=== PATIENT | male | born 1965 | race Caucasian/White ===

== ENCOUNTER 2021-04-06 13:57 | Outpatient (REF) | payer OTHER, SELFPAY ==
[2021-04-06 14:53] LABS: Anion Gap 12 (12-20); Blood Urea Nitrogen 12 mg/dL (9-16); Calcium 9.7 mg/dL (8.4-10.2); Carbon Dioxide 23 mmol/L (22-29); Chloride 109 mmol/L (96-108); Estimated Glomerular Filt Rate 48; Glucose Fasting 101 mg/dL (60-99); Sodium 139 mmol/L (135-145)
== END 2021-04-06 13:58 | disposition home or self-care (01) ==
LOC: HO.LAB 13:57
PROVIDERS: PCP Hospitalist; Visit Provider Internal Medicine Hypertension Specialist
DX: E87.1 Hypo-osmolality and hyponatremia (principal)
CPT/HCPCS: 36415; 80048

== ENCOUNTER 2021-07-03 15:44 | Outpatient (REF) | payer OTHER, SELFPAY ==
[2021-07-03 16:29] LABS: MANUAL DIFF FLAG NO
[2021-07-03 16:37] LABS: Basophils Absolute Auto 0.1 X10*3/uL (0.0-0.2); Basophils Percent Auto 0.7 % (0-2); Eosinophils Absolute Auto 0.2 X10*3/uL (0.0-0.4); Eosinophils Percent Auto 3.3 % (0-4); Hematocrit 36.1 % (42-52); Imm Gran Abs Auto 0.02 X10*3/uL (0.00-0.03); Imm Gran Pct Auto 0.3 % (0.0-0.4); Lymphocytes Absolute Auto 1.9 X10*3/uL (1.2-4.9); Lymphocytes Percent Auto 26.4 % (20-40); Mean Corpuscular HGB Conc 33.2 g/dl (31.0-36.0); Mean Corpuscular Hemoglobin 29.9 pg (27.0-33.0); Mean Corpuscular Volume 89.8 fL (80-98); Mean Platelet Volume 10.5 fL (9.4-12.4); Monocytes Absolute Auto 0.8 X10*3/uL (0.1-1.2); Monocytes Percent Auto 10.7 % (2-11); Neutrophils Absolute Auto 4.2 X10*3/uL (2.0-8.3); Neutrophils Percent Auto 58.6 % (45-73); Platelet Count 234 X10*3/uL (160-400); Red Blood Count 4.02 X10*6/uL (4.60-5.80); Red Cell Distribution Width 13.5 % (11.0-16.0); White Blood Count 7.2 X10*3/uL (4.8-10.8)
[2021-07-03 16:49] LABS: Anion Gap 11 (12-20); Blood Urea Nitrogen 13 mg/dL (9-16); Calcium 9.7 mg/dL (8.4-10.2); Carbon Dioxide 23 mmol/L (22-29); Chloride 110 mmol/L (96-108); Estimated Glomerular Filt Rate 53; Glucose Random 83 mg/dL (60-115); Potassium 4.7 mmol/L (3.3-5.1); Sodium 139 mmol/L (135-145)
== END 2021-07-03 15:45 | disposition home or self-care (01) ==
LOC: HO.LAB 15:44
PROVIDERS: PCP Hospitalist; Visit Provider Internal Medicine Hypertension Specialist
DX: N18.31 Chronic kidney disease, stage 3a (principal)
CPT/HCPCS: 36415; 80048; 85025

== ENCOUNTER 2022-10-22 09:29 | Outpatient (REF) | payer OTHER, SELFPAY ==
[2022-10-22 10:33] LABS: Anion Gap 13 (12-20); Blood Urea Nitrogen 18 mg/dL (9-16); Carbon Dioxide 28 mmol/L (22-29); Chloride 103 mmol/L (96-108); Estimated Glomerular Filt Rate 54; Glucose Random 128 mg/dL (60-115); Potassium 5.2 mmol/L (3.3-5.1); Sodium 139 mmol/L (135-145)
== END 2022-10-22 09:30 | disposition home or self-care (01) ==
LOC: HO.LAB 09:29
PROVIDERS: PCP Hospitalist; Referring Provider Hospitalist; Visit Provider Internal Medicine Hypertension Specialist
DX: N18.31 Chronic kidney disease, stage 3a (principal)
CPT/HCPCS: 36415; 80048

== ENCOUNTER → 2024-02-12 14:00 | Outpatient (BNVA) | payer OTHER, SELFPAY | PROVIDERS: PCP Hospitalist; Visit Provider Internal Medicine Hypertension Specialist | DX: N18.9 Chronic kidney disease, unspecified (principal) | CPT/HCPCS: 99212 ==

== ENCOUNTER 2024-02-12 14:02 | Outpatient (AMB) | payer OTHER, SELFPAY ==
[2024-02-12 14:01] VITALS: BP 112/70; PULSE 110; O2SAT 97; BMI 28.1
--- NOTE | 2024-02-12 14:01 | HO.NEPHOV ---
HPI HPI Comments History of Present Illness Details Middle aged man with CKD is here for follow up Recently finished rehab program Still smoked pot. Denies alcohol intake c/o Cramps - Takes Magnesium and Iron supplements PFSH Surgical History History of back surgery Social History Patient Tobacco Use Status: Never used Tobacco Vital Signs 02/12/24 14:01 Height 6 ft Weight 207 lb BMI 28.1 BP 112/70 Blood Pressure Location Lt brachial Position Sitting Pulse 110 H Pulse Source Pulse Oximeter Pulse Oximetry (%) 97 Oxygen Delivery Method Room Air Physical Exam Vital Signs: Last Vital Signs Pulse 110 H 02/12/24 14:01 BP 112/70 02/12/24 14:01 Pulse Ox 97 02/12/24 14:01 Oxygen Delivery Method Room Air 02/12/24 14:01 BMI result Body Mass Index 28.1 Const General: comfortable Nutritional Appearance: well nourished Orientation/consciousness: patient oriented x3 HEENT Head: No normal to inspection Mouth: moist mucous membranes Neck Neck: Yes supple and Yes no JVD Resp Auscultation: clear to auscultation bilaterally, no rales and rub present Cardio Jugular venous distension: no JVD Palpation: no palpable S3 and no palpable S4 Heart sounds: no rubs GI Palpation (GI): Soft to palpation and nontender Percussion: No Fluid wave present General: Yes no CVA tenderness Back/Spine/Pelvis Back: no CVA tenderness Skin General skin exam: no rashes or lesions noted Neuro General: patient oriented x3 Extrem General: Yes no pedal edema and No clubbing Assessment & Plan Assessment & Plan (1) CKD (chronic kidney disease): Code(s): N18.9 - Chronic kidney disease, unspecified Plan Middle aged man with CKD Renal function is close to baseline Continue to avoid nephrotoxins including NSAIDS and illicit drugs Keep I > O Can try tonic water to alleviate cramps BP acceptale NO changes were made Orders: Orders Basic Metabolic Panel 6 Months N18.9 - Chronic kidney disease, unspecified Coding Level of Care Code Est Pt Level 3 (37528) Diagnoses CKD (chronic kidney disease) N18.9 Results Reviewed Results Reviewed: Jan 25: cr 1.3 Nephrology Results: Hgb 12.0 g/dl (14.0-18.0) L 07/03/21 WBC 7.2 X10*3/uL (4.8-10.8) 07/03/21 Plt Count 234 X10*3/uL (160-400) 07/03/21 Sodium 139 mmol/L (135-145) 10/22/22 Potassium 5.2 mmol/L (3.3-5.1) H 10/22/22 Chloride 103 mmol/L (96-108) 10/22/22 Carbon Dioxide 28 mmol/L (22-29) 10/22/22 BUN 18 mg/dL (9-16) H 10/22/22 Creatinine 1.36 mg/dL (0.5-1.4) 10/22/22 Calcium 10.0 mg/dL (8.4-10.2) 10/22/22
== END 2024-02-12 14:18 | disposition home or self-care (01) ==
PROVIDERS: PCP Hospitalist; Visit Provider Internal Medicine Hypertension Specialist
DX: N18.9 Chronic kidney disease, unspecified (principal)
CPT/HCPCS: 99213

== ENCOUNTER 2024-08-12 10:23 | Outpatient (AMB) | payer OTHER, SELFPAY ==
[2024-08-12 10:31] VITALS: BP 122/60; PULSE 70; O2SAT 98; BMI 25.9
--- NOTE | 2024-08-12 10:31 | HO.NEPHOV_ITS ---
Vital Signs 08/12/24 10:31 Height 6 ft Weight 191 lb BMI 25.9 BP 122/60 Blood Pressure Location Lt brachial Position Sitting Pulse 70 Pulse Source Pulse Oximeter Pulse Oximetry (%) 98 Oxygen Delivery Method Room Air Intake Visit Reasons: 6 mon follow up/ Conf Atomic Fuel Assembler Required: No Accompanied by: Self / Same As Patient Allergies adhesive tape Allergy (Verified 08/12/24 10:32) Unknown bees Allergy (Unknown, Uncoded 01/01/24 16:32) Unknown MRI contrast Allergy (Unknown, Uncoded 01/01/24 16:32) Unknown poisin yanci Allergy (Unknown, Uncoded 01/01/24 16:32) Unknown Medication List - Last Reconciled 08/12/24 by Stanislav Miller MD amlodipine 2.5 mg PO DAILY clonidine HCl 0.1 mg PO BEDTIME cyanocobalamin (vitamin B-12) 100 mcg PO DAILY epinephrine (EpiPen) 0.3 mg IM Q4H PRN folic acid 1 mg PO DAILY gabapentin 300 mg PO QDAY hydroxyzine HCl 25 mg PO BEDTIME PRN rosuvastatin 5 mg PO DAILY sertraline 100 mg PO DAILY thiamine HCl (vitamin B1) 100 mg PO QDAY HPI Comments Details: Middle aged man with CKD is here for follow up Still smokes pot. Denies alcohol intake Still has Cramps but improved- Takes Magnesium and Iron supplements PFSH Surgical History History of back surgery Social History Patient Tobacco Use Status: Never used Tobacco Physical Exam Vital Signs: Last Vital Signs Pulse 70 08/12/24 10:31 BP 122/60 08/12/24 10:31 Pulse Ox 98 08/12/24 10:31 Oxygen Delivery Method Room Air 08/12/24 10:31 BMI result Body Mass Index 25.9 Const General: comfortable Nutritional Appearance: well nourished Orientation/consciousness: patient oriented x3 HEENT Head: No normal to inspection Mouth: moist mucous membranes Neck Neck: Yes supple and Yes no JVD Resp Auscultation: clear to auscultation bilaterally, no rales and rub present Cardio Jugular venous distension: no JVD Palpation: no palpable S3 and no palpable S4 Heart sounds: no rubs GI Palpation (GI): Soft to palpation and nontender Percussion: No Fluid wave present General: Yes no CVA tenderness Back/Spine/Pelvis Back: no CVA tenderness Skin General skin exam: no rashes or lesions noted Neuro General: patient oriented x3 Extrem General: Yes no pedal edema and No clubbing Results Reviewed Results Reviewed: Labs pending- Done today Nephrology Results: Hgb 12.0 g/dl (14.0-18.0) L 07/03/21 WBC 7.2 X10*3/uL (4.8-10.8) 07/03/21 Plt Count 234 X10*3/uL (160-400) 07/03/21 Sodium 139 mmol/L (135-145) 10/22/22 Potassium 5.2 mmol/L (3.3-5.1) H 10/22/22 Chloride 103 mmol/L (96-108) 10/22/22 Carbon Dioxide 28 mmol/L (22-29) 10/22/22 BUN 18 mg/dL (9-16) H 10/22/22 Creatinine 1.36 mg/dL (0.5-1.4) 10/22/22 Calcium 10.0 mg/dL (8.4-10.2) 10/22/22 Assessment & Plan Assessment & Plan (1) CKD (chronic kidney disease): Code(s): N18.9 - Chronic kidney disease, unspecified Category: Medical Plan Middle aged man with CKD Renal function is close to baseline- shall follow labs Continue to avoid nephrotoxins including NSAIDS and illicit drugs Keep I > O Use tonic water to alleviate cramps BP acceptale Encouraged to stay on low salt diet No changes were made Coding Level of Care Code Est Pt Level 4 (08252) Diagnoses CKD (chronic kidney disease) N18.9
== END 2024-08-12 10:44 | disposition home or self-care (01) ==
PROVIDERS: PCP Hospitalist; Visit Provider Internal Medicine Hypertension Specialist
DX: N18.9 Chronic kidney disease, unspecified (principal)
CPT/HCPCS: 99214

== ENCOUNTER 2024-08-12 10:23 | Outpatient (REF) | payer OTHER, SELFPAY ==
[2024-08-12 17:58] LABS: Anion Gap 11 (12-20); Blood Urea Nitrogen 22 mg/dL (9-16); Calcium 9.6 mg/dL (8.4-10.2); Carbon Dioxide 30 mmol/L (22-29); Chloride 101 mmol/L (96-108); Estimated Glomerular Filt Rate 36; Glucose Random 131 mg/dL (60-115); Potassium 5.5 mmol/L (3.3-5.1); Sodium 136 mmol/L (135-145)
== END 2024-08-12 10:24 | disposition home or self-care (01) ==
LOC: HO.HKASLDS 10:23
PROVIDERS: Visit Provider Internal Medicine Hypertension Specialist
DX: N18.9 Chronic kidney disease, unspecified (principal)
CPT/HCPCS: 36415; 80048; 99212

== ENCOUNTER → 2024-08-12 10:23 | Outpatient (BNVA) | payer OTHER, SELFPAY | PROVIDERS: PCP Hospitalist; Visit Provider Internal Medicine Hypertension Specialist ==

== ENCOUNTER 2025-02-17 10:45 | Outpatient (AMB) | payer OTHER, SELFPAY ==
--- NOTE | 2025-02-17 10:48 | HO.NEPHOV ---
Vital Signs 02/17/25 10:49 Height 6 ft Weight 198 lb BMI 26.9 BP 106/64 Blood Pressure Location Lt brachial Position Sitting Pulse 80 Pulse Source Pulse Oximeter Pulse Oximetry (%) 99 Oxygen Delivery Method Room Air Intake Visit Reasons: 6 mon follow up/ LVM Surgical Services Manager Required: No Accompanied by: Self / Same As Patient Allergies adhesive tape Allergy (Verified 02/17/25 10:56) Unknown bees Allergy (Unknown, Uncoded 01/01/24 16:32) Unknown MRI contrast Allergy (Unknown, Uncoded 01/01/24 16:32) Unknown poisin yanci Allergy (Unknown, Uncoded 01/01/24 16:32) Unknown Medication List - Last Reconciled 02/17/25 by Stanislav Miller MD amlodipine 2.5 mg PO DAILY clonidine HCl 0.1 mg PO BEDTIME cyanocobalamin (vitamin B-12) 100 mcg PO DAILY epinephrine (EpiPen) 0.3 mg IM Q4H PRN ferrous sulfate 325 mg PO DAILY folic acid 1 mg PO DAILY gabapentin 300 mg PO QDAY hydroxyzine HCl 25 mg PO BEDTIME PRN magnesium oxide 400 mg PO DAILY pramipexole 0.5 mg PO DAILY pyridoxine (vitamin B6) 50 mg PO DAILY rosuvastatin 5 mg PO DAILY sertraline 200 mg PO DAILY thiamine HCl (vitamin B1) 100 mg PO QDAY HPI Comments Details: Middle aged man with CKD is here for follow up Still smokes pot. Denies alcohol intake Still has Cramps but improved- Takes Magnesium and Iron supplements 02/17/25- Cramps are better PFSH Surgical History History of back surgery Social History Patient Tobacco Use Status: Never used Tobacco Physical Exam Vital Signs: Last Vital Signs Pulse 80 02/17/25 10:49 BP 106/64 02/17/25 10:49 Pulse Ox 99 02/17/25 10:49 Oxygen Delivery Method Room Air 02/17/25 10:49 BMI result Body Mass Index 26.9 Const General: comfortable Nutritional Appearance: well nourished Orientation/consciousness: patient oriented x3 HEENT Head: No normal to inspection Mouth: moist mucous membranes Neck Neck: Yes supple and Yes no JVD Resp Auscultation: clear to auscultation bilaterally and no rales Cardio Jugular venous distension: no JVD Palpation: no palpable S3 and no palpable S4 Heart sounds: Murmur heart sound present and no rubs GI Palpation (GI): Soft to palpation and nontender Percussion: No Fluid wave present General: Yes no CVA tenderness Back/Spine/Pelvis Back: no CVA tenderness Skin General skin exam: no rashes or lesions noted Neuro General: patient oriented x3 Extrem General: Yes no pedal edema and No clubbing Results Reviewed Results Reviewed: 01/19/25 Cr 1.19 K 5.2 Nephrology Results: Hgb 12.0 g/dl (14.0-18.0) L 07/03/21 WBC 7.2 X10*3/uL (4.8-10.8) 07/03/21 Plt Count 234 X10*3/uL (160-400) 07/03/21 Sodium 136 mmol/L (135-145) 08/12/24 Potassium 5.5 mmol/L (3.3-5.1) H 08/12/24 Chloride 101 mmol/L (96-108) 08/12/24 Carbon Dioxide 30 mmol/L (22-29) H 08/12/24 BUN 22 mg/dL (9-16) H 08/12/24 Creatinine 1.91 mg/dL (0.5-1.4) H 08/12/24 Calcium 9.6 mg/dL (8.4-10.2) 08/12/24 Assessment & Plan Assessment & Plan (1) CKD (chronic kidney disease): Code(s): N18.9 - Chronic kidney disease, unspecified Category: Medical Plan Middle aged man with CKD Renal function is close to baseline- shall follow labs Continue to avoid nephrotoxins including NSAIDS and illicit drugs Keep I > O Use tonic water to alleviate cramps BP acceptale Encouraged to stay on low salt diet No changes were made Orders: Orders Basic Metabolic Panel 6 Months N18.9 - Chronic kidney disease, unspecified Phosphorus 6 Months N18.9 - Chronic kidney disease, unspecified Magnesium 6 Months N18.9 - Chronic kidney disease, unspecified Parathyroid Hormone Intact 6 Months N18.9 - Chronic kidney disease, unspecified Coding Level of Care Code Est Pt Level 4 (90175) Diagnoses CKD (chronic kidney disease) N18.9
[2025-02-17 10:49] VITALS: BP 106/64; PULSE 80; O2SAT 99; BMI 26.9
--- OUTSIDE RECORDS SUMMARY | 2025-02-17 12:48 | XMS_ITS ---
Author Organization [facility] Address [address] [place] [address] Care Team Providers Care Lecturer In Marketing Name Role Phone LLOYD MOHR Primary Care Provider [phone] REASON FOR VISIT Handicap Placard Form Encounters Encounter Location Date Provider Diagnosis [address] [address] 01/27/2025 LLOYD MOHR Plan Of Treatment Next Appt Details Provider Name:Marlon Palafoxneo rush, 07/30/2025 11:00:00 AM, [address] [place] [address], [place], [address], Progress Notes * TITI HYATT PDOB:1964 (59 yo M)Acc No.[id number]:01/27/2025 Patient:?TITI HYATT :1965???Age:59 Y???Sex:Male Address:[address] [place] [phone] * true * Date:? Generated for Nicolette mix/Miracle/eTransmitting on:?02/17/2025 12:47 PM EDT
--- OUTSIDE RECORDS SUMMARY | 2025-02-17 12:48 | XMS_ITS | Clinical Summary ---
Author Organization [facility] Address [address] [place] [address] Phone Care Team Providers Care Security Systems Sales Representative Name Role Phone Sheba Ayala MD Primary Care Provider [phone] Allergies Active Allergy Reactions Criticality Noted Date Comments Adhesive Tape Other (see comments) 02/26/2018 Gadopentetate Other (see comments) 12/28/2010 Iodinated Contrast Media Other (see comments) 0 02/18/2017 Other Other (see comments) 05/22/2010 Contrast Dye. Medications EPINEPHrine (EPIPEN) 0.3 MG/0.3ML injection syringe Inject 0.3 mg into the shoulder, thigh, or buttocks 03/11/2019 Active folic acid (FOLVITE) 1 MG tablet Take 1 tablet by mouth 1 (one) time each day 02/29/2020 Active thiamine (VITAMIN B-1) 100 MG tablet TAKE 1 TABLET BY MOUTH TWO TIMES A DAY FOR 14 DAYS 03/19/2021 Active hydrOXYzine (ATARAX) 25 MG tablet TAKE ONE TABLET BY MOUTH EVERY 8 HOURS NEEDED 03/21/2021 Active cloNIDine (CATAPRES) 0.1 MG tablet Take 0.1 mg by mouth 1 (one) time each day For 30 days 10/18/2022 Active escitalopram (LEXAPRO) 20 MG tablet Take 20 mg by mouth 1 (one) time each day 03/05/2022 Active rosuvastatin (CRESTOR) 5 MG tablet Take 5 mg by mouth 1 (one) time each day For 30 days 09/05/2022 Active lisinopril 10 MG tablet Take 10 mg by mouth 1 (one) time each day 03/05/2022 Active gabapentin (NEURONTIN) 300 MG capsule Take 300 mg by mouth 1 (one) time each day Every day for 30 days 10/23/2022 Active celecoxib (CeleBREX) 100 MG capsule Take 100 mg by mouth in the morning and 100 mg in the evening. 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 Gouty arthritis of the ankle and/or foot 017 Basal cell carcinoma of skin 09/09/2017 Overview (04/03/2021): Left upper back. 08/09/2017 Overview: Left upper back. 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 Janelle Ware @ [facility] [place] Hyperlipidemia 03/09/2017 Overview (04/03/2021): 10 year ASCVD risk = 14.5% Alcohol dependence 02/18/2017 Alcoholic fatty liver 02/18/2017 Essential hypertension 02/18/2017 Osteoarthrosis of the carpometacarpal joint of t he thumb 02/18/2017 Tobacco user 02/18/2017 Spondylolisthesis 06/21/2011 Overview (04/03/2021): Spondylolisthesis Overview: Spondylolisthesis Immunizations Name Administration Dates Next Due Hepatitis B 11/08/2017,03/14/2017 Tdap 12/16/2019 Family History Medical History Relation Comments Diabetes Father Relation Status Comments Father Mother Social History Tobacco Use Types Packs/Day Years Used Date Smoking Tobacco: Former Smokeless Tobacco: Never Tobacco Cessation:Counseling Given: Not Answered Alcohol Use Standard Drinks/Week Comments Not Currently 0 (1 standard drink = 0.6 oz pur e alcohol) Sex and Gender Information Value Date Recorded Sex Assigned at Not on file Legal Sex Male 10:31 AM EDT Gender Identity Not on file Sexual Orientation Not on file Last Filed Vital Signs Vital Sign Reading Time Taken Comments Blood Pressure 150/82 03/20/2023 3:53 PM EDT Pulse 111 03/20/2023 3:53 PM EDT Temperature - - Respiratory Rate - - Oxygen Saturation 98% 03/20/2023 3:53 PM EDT Inhaled Oxygen Concentration - - Weight 90.7 kg (200 lb) 03/20/2023 3:53 PM EDT Height - - Body Mass Index - - Plan of Treatment Health Maintenance Due Date Last Done Comments Pneumococcal Vaccine: Pediatrics (0 to 5 Years) and At-Risk Patients (6 to 64 Years) (1 of 2 - PCV) 1970 Colorectal Cancer Screening: Annual FOBT 2013 Colorectal Cancer Screening: Colonoscopy 2013 Colorectal Cancer Screening: Sigmoidoscopy 2013 Influenza Vaccine (#1) 2024 Hepatitis B Vaccine Aged Out 11/08/2017, 03/14/2017 No longer eligible based on patient's age to complete this topic Care Teams Security Systems Sales Representative Relationship Specialty Start Date End Date Sheba Ayala MD [address] [place] [address] PCP - General Internal Medicine 12/02/20
--- OUTSIDE RECORDS SUMMARY | 2025-02-17 12:48 | XMS_ITS | Clinical Summary ---
Author Organization [facility] Address [address] [place] [address] Care Team Providers Care Religion Teacher Name Role Phone DaimarcyRafael Primary Care Provider [phone] Source Comments PLEASE NOTE, if this patient is a minor, it may be UNLAWFUL to discuss sensitive information that is contained in these records (such as FAMILY PLANNING, MENTAL HEALTH or SUBSTANCE ABUSE) with the minor patient's parent or other person without the patient's specific authorization.[facility] Allergies Active Allergy Reactions Criticality Noted Date Comments Iodinated Contrast Media Cough 02/18/2017 Medications nicotine (NICODERM CQ) 21 mg/[address] 1 Patch onto the skin Active diclofenac sodium (VOLTAREN) 1 % gelIndications:N onspecific pain in the lumbar region Apply topically 2 (two) times daily 100 g 1 9 Active naproxen (NAPROSYN) 500 mg tabletIndication s:Nonspecific pain in the lumbar region Take 1 Tab by mouth 2 (two) times daily 60 Tab 1 9 Active methylPREDNISolo ne (MEDROL DOSPACK) 4 mg tablet packIndications: Contusion of lower back, initial encounter Use as directed 1 Packet 9 Active baclofen 20 mg tabletIndication s:Muscle spasm Take 1 Tab by mouth nightly at bedtime 30 Tab 3 9 Active EPINEPHrine (EPIPEN) 0.3 mg/0.3 mL pen injectorIndicati ons:H/O bee sting allergy Inject 0.3 mL into the muscle as needed for anaphylaxis 1 Each 3 9 Active pyridoxine, vitamin B6, 100 mg tabletIndication s:Alcohol use Take 1 Tab by mouth once daily 30 Tab 5 9 Active pantoprazole (PROTONIX) 20 mg EC tabletIndication s:Gastroesophage al reflux disease without esophagitis,Bila teral leg edema Take 1 Tab by mouth once daily 60 Tab 0 Active folic acid (FOLVITE) 1 mg tabletIndication s:Alcohol use TAKE 1 TABLET BY MOUTH ONCE DAILY 30 Tab 5 0 Active losartan (COZAAR) 100 mg tabletIndication s:Essential hypertension Take 1 Tab by mouth once daily 90 Tab 2 0 Active nadoloL (CORGARD) 40 mg tabletIndication s:Essential hypertension TAKE 1 TABLET BY MOUTH ONCE DAILY 30 Tab 3 0 Active Active Problems Problem Noted Date Diagnosed Date Neuropathy 01/04/2020 Overview (01/04/2020): BLE- EMG 04/14/19 showed mild to moderate axonal sensory and motor chronic peripheral neuropathy . Gout of right foot 11/08/2017 Basal cell carcinoma of skin 09/09/2017 Overview (02/26/2019): Overview: Left upper back. 08/09/2017 Hypomagnesemia 05/25/2017 Primary osteoarthritis of both knees 05/04/2017 Overview (05/04/2017): Rheum f/u Dr. Janelle Ware @ [facility] [place] Bilateral carpal tunnel syndrome 05/04/2017 Hyperlipidemia LDL goal <100 03/09/2017 Overview (03/09/2017): 10 year ASCVD risk = 14.5% Essential hypertension 02/18/2017 Tobacco abuse disorder 02/18/2017 Uncomplicated alcohol dependence (HCC-CMS) 02/18 Alcoholic fatty liver 02/18/2017 Osteoarthritis of carpometacarpal joints of both thumbs 02/18/2017 Spondylolisthesis 06/21/2011 Overview (02/26/2019): Overview: Spondylolisthesis Resolved Problems Problem Noted Date Diagnosed Date Resolved Date Chronic right-sided low back pain with bilateral sciatica 02/18/2017 11/08/2017 Immunizations Name Administration Dates Next Due Hep B, Adult/Adol (ENERGIX/RECOMBIVAX) 7,03/14/2017 TDAP 12/16/2019 Family History Medical History Relation Name Comments Hypertension Father Diabetes Sister Relation Name Status Comments Father (Age 87) Mother Alive Sister Alive Social History Tobacco Use Types Packs/Day Years Used Date Smoking Tobacco: Every Day Cigarettes Smokeless Tobacco: Never Alcohol Use Standard Drinks/Week Comments Yes 0 (1 standard drink = 0.6 oz pur e alcohol) everyday ~6 mixed drinks Social Connections Answer Date Recorded Connectedness 0 08/21/2024 Financial Resource Strain Answer Date R ecorded Financial Resource Strain 0 2018 Stress Answer Date Recorded Stress 0 07/26/2019 Physical Activity Answer Date Recorded Physical Activity 0 07/26/2019 Food Insecurity Answer Date Recorded Food 0 08/27/2024 Transportation Needs Answer Date Record ed Transportation 0 07/26/2019 Housing Stability Answer Date Recorded Housing 0 07/26/2019 Safety and Environment Answer Date Norman rded Safety 0 07/26/2019 Utilities Answer Date Recorded Utilities 0 07/26/2019 Employment Answer Date Recorded Stress 0 08/21/2024 Sex and Gender Information Value Date Recorded Sex Assigned at Male 11/08/2017 1:17 PM PST Legal Sex Male 12:58 PM PST Gender Identity Male 11/08/2017 1:17 PM PST Sexual Orientation Straight 11/08/2017 1: 17 PM PST 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 Author Blood Pressure < 140/90 Blood Pressure Essential hypertension 146/95(2019 3:36 PM EST) No Arcadio Pa, PharmD Insurance [employer] MEDICAID DENTAL [facility] D[facility]AL [id number] [place] [address] Care Teams Religion Teacher Relationship Specialty Start Date End Date Rafael Millard FNP [address] [place] [address] PCP - General Family Medicine, MAINTENANCE MECHANIC SUPERVISOR 12/23/17
--- OUTSIDE RECORDS SUMMARY | 2025-02-17 12:48 | XMS_ITS ---
Author Organization [facility] Address [address] [place] [phone] Care Team Providers Care Sharepoint Analyst Name Role Phone LLOYD MOHR Primary Care Provider REASON FOR VISIT Morphine rx Medications Medication SIG (Take, Route, Frequency, Duration) Notes Start Date End Date Status Morphine Sulfate ER 10 MG 1 capsule Orally Once a day for 10 days Partial Fill upon Patient Request 01/04/2025 Active Encounters Encounter Location Date Provider Diagnosis [address] [address] 01/04/2025 LLOYD MOHR Polyneuropathy, unspecified G62.9 Assessments Encounter Date Diagnosis (ICD Code) Assessment Notes Treatment Notes Treatment Clinical Notes Section Notes 01/04/2025 Polyneuropathy, unspecified (ICD-10 - G62.9) Plan Of Treatment Medication Medication Name Sig Start Date Stop Date Notes Morphine Sulfate ER 10 MG 1 capsule Orally Once a day for 10 days 01/04/2025 Partial Fill upon Patient Request Next Appt Details Provider Name:Darrellhaydee Margot rush, 07/30/2025 11:00:00 AM, [address] [place] [address], [phone], Progress Notes * TITI HYATT PDOB:1964 (59 yo M)Acc No.[id number]:01/04/2025 Patient:?TITI HYATT :1965???Age:59 Y???Sex:Male Address:[address] [place] [phone] * Refills? Refill Morphine Sulfate ER Capsule Extended Release 24 Hour, 10 MG, Orally, 10 Capsule, 1 capsule, Once a day, 10 days, Refills=0 * true * Date:? Generated for Nicolette mix/Miracle/Carlaitting on:?02/17/2025 12:48 PM EDT
--- OUTSIDE RECORDS SUMMARY | 2025-02-17 12:48 | XMS_ITS | Clinical Summary ---
Author Organization [facility] Address [address] [place] [address] Care Team Providers Care Director [facility] Name Role Phone Sheba Ayala MD Primary Care Provider [phone] Medical History Medical History Date Comments Basal cell carcinoma 09/09/2017 DX:Basal ce ll carcinoma; COMMENT: Left upper back. 08/09/2017 Social History Tobacco Use Types Packs/Day Years Used Date Smoking Tobacco: Never Smokeless Tobacco: Never Sex and Gender Information Value Date Recorded Sex Assigned at Not on file Legal Sex Male 2:43 PM EST Gender Identity Not on file Sexual Orientation Not on file Obstetrics History Last Filed Vital Signs Vital Sign Reading Time Taken Comments Blood Pressure 148/86 10/05/2022 3:21 PM EDT R A rm Pulse - - Temperature - - Respiratory Rate - - Oxygen Saturation - - Inhaled Oxygen Concentration - - Weight 91.6 kg (202 lb) 10/05/2022 3:21 PM EDT Height 182.9 cm (6') 10/05/2022 3:21 PM EDT Body Mass Index 27.4 10/05/2022 3:21 PM EDT Plan of Treatment Health Maintenance Due Date Last Done Comments COVID-19 Vaccine (#1) 1969 DTaP,Tdap,and Td Vaccines (1 - Tdap) 1983 Pneumococcal Vaccine: 50+ Ye ars (1 of 2 - PCV) 1983 Pneumococcal Vaccine: Pediat rics (0 to 5 Years) and At-Risk Patients (6 to 64 Years) (1 of 2 - PCV) 1983 Zoster Vaccines (1 of 2) 1983 Cholesterol Screening (Lipid Panel) 11/10/2022 Colorectal Cancer Screening: Colonoscopy 11/10/2022 Depression Screening 11/10/2022 HIV Screening 11/10/2022 Hepatitis C Screening 11/10/2022 Social Influencers of Health Screening 11/10/2022 Influenza Vaccine (#1) 2024 RSV Immunization Patients 60 + Years Old (1 - 1-dose 75+ series) 2039 HIB Vaccines Aged Out No longer eligi ble based on patient's age to complete this topic HPV Vaccines Aged Out No longer eligi ble based on patient's age to complete this topic Hepatitis A Vaccines Aged Out No long er eligible based on patient's age to complete this topic Hepatitis B Vaccines Aged Out No long er eligible based on patient's age to complete this topic IPV Vaccines Aged Out No longer eligi ble based on patient's age to complete this topic MMR Vaccines Aged Out No longer eligi ble based on patient's age to complete this topic Meningococcal ACWY Vaccine Aged Out N o longer eligible based on patient's age to complete this topic Meningococcal B Vacine Aged Out No lo nger eligible based on patient's age to complete this topic RSV Immunization Patients Un elissa 20 months Aged Out No longer eligible b ased on patient's age to complete this topic Varicella Vaccines Aged Out No longer eligible based on patient's age to complete this topic Advance Directives Documents on File Type Date Recorded Patient Digital Advisor Expl anation Health Care Decision (hx) 10/06/2018 AD [place] DIRECTIVE Health Care Decision (hx) 10/06/2018 AD [place] DIRECTIVE Health Care Decision (hx) 10/06/2018 AD [place] DIRECTIVE Health Care Decision (hx) 10/06/2018 AD [place] DIRECTIVE Health Care Decision (hx) 10/06/2018 AD [place] DIRECTIVE Health Care Decision (hx) 10/03/2018 AD [place] DIRECTIVE Health Care Decision (hx) 10/03/2018 AD [place] DIRECTIVE Health Care Decision (hx) 10/03/2018 AD [place] DIRECTIVE Health Care Decision (hx) 10/03/2018 AD [place] DIRECTIVE Health Care Decision (hx) 10/03/2018 AD [place] DIRECTIVE Care Teams Director [facility] Relationship Specialty Start Date End Date Sheba Ayala MD [address] [place] [id number] (work) PCP - General Internal Medicine 01/04/21
--- OUTSIDE RECORDS SUMMARY | 2025-02-17 12:48 | XMS_ITS ---
Author Organization [facility] Address [address] [place] [address] Care Team Providers Care Pipe Setter Name Role Phone LLOYD MOHR Primary Care Provider Marlon Gutierrez Unavailable [phone] Allergies Allergen (clinical drug ingredient) Drug/Non Drug Allergy documented on EMR Reaction Allergy Type Onset Date Status MRI Contrast (uncoded) Unknown Allergy Active lisinopril Lisinopril swelling of face Drug Allergy Active Results Component Value Reference Range Notes Hemoglobin [id number] Reviewed date:02/04/2025 08:56:54 AM Interpretation: Performing Lab:[facility], [address], [place], Phone - [phone], Director - Amada Notes/Report: Hemoglobin A1c 6.2 4.8-5.6 % . Prediabetes: 5.7 - 6.4 Diabetes: >6.4 Glycemic control for adults with diabetes: <7.0 Reason For Referral Reason Please evaluate and treat, refer to [place] Diagnosis 1 Arthritis of knee, l eft (M17.12) Referral Organization [facility] Referring Provider First Name Marlon Referring Provider Last Name Brenda Referred Provider Specialty Orthopedic S urgery Referral Priority Routine REASON FOR VISIT 1 month f/u MARISELA Medications Medication SIG (Take, Route, Frequency, Duration) Notes Start Date End Date Status Dicyclomine HCl 20 MG TAKE 1 TABLET BY MOUTH THREE TIMES A DAY FOR 30 DAYS for 90 Active Morphine Sulfate ER 10 MG 1 capsule Orally Once a day for 10 days Partial Fill upon Patient Request 01/04/2025 Active [facility] Iron 325 (65 Fe) MG TAKE 1 TABLET BY MOUTH EVERY DAY FOR 30 DAYS for 90 Active Sertraline HCl 200 MG 1 capsule Orally Once a day for 30 days Active Sertraline HCl 150 MG 1 capsule Orally Once a day for 30 days Not-Taking amLODIPine Besylate 2.5 MG TAKE 1 TABLET BY MOUTH EVERY DAY FOR 30 DAYS for 90 Active tiZANidine HCl 4 MG TAKE 1 TABLET BY MOUTH EVERY DAY AT BEDTIME NEEDED FOR 30 DAYS for 30 Active hydrOXYzine HCl 25 MG TAKE 1 TABLET BY MOUTH EVERY 8 HOURS for 90 Active cloNIDine HCl 0.2 MG 1 tablet in the morning and two at night Orally twice a day for 90 days Active Gabapentin 300 MG 1 capsule Orally four times a day for 90 days Active Thiamine HCl 100 MG 1 tablet Orally Once a day for 90 days Active Folic Acid 1 MG 1 tablet Orally Once a day for 90 days Active Vitamin B12 100 MCG 100 mg Orally daily for 90 days 2 gummies daily Active CoQ-10 200 MG as directed Orally Active traZODone HCl 50 MG 1 tablet at bedtime as needed Orally Once a day Active Vitamin B6 50 MG 1 tablet Orally Active Diclofenac Sodium 1 % DIRECTED EXTERNALLY 2 TIMES A DAY FOR 30 DAYS for 30 Not-Taking Celecoxib 100 MG TAKE 1 CAPSULE BY MOUTH EVERY DAY WITH FOOD FOR 30 DAYS for 30 Not-Taking Naltrexone HCl 50 MG 1 tablet Orally Once a day for 30 day(s) 10/18/2022 Not-Taking Cialis 10 MG 1 tablet as needed Orally Once a day for 2 days 01/26/2025 Active Furosemide 40 MG TAKE 1 TABLET BY MOUTH EVERY DAY FOR 90 DAYS for 90 GI doctor recommended to stop the medication Not-Taking Spironolactone 25 MG TAKE 1 TABLET BY MOUTH EVERY DAY for 90 GI doctor recommended to stop the medication Not-Taking Calcium Not-Taking Magnesium Not-Taking Pantoprazole Sodium 20 MG 1 tablet Orally Once a day for 30 days 03/10/2024 Not-Taking tiZANidine HCl 2 MG 1 tablet at bedtime as needed Orally Once a day for 30 days 05/07/2024 Not-Taking Furosemide 40 MG 1 tablet Orally Once a day for 90 days 05/07/2024 Not-Taking Rosuvastatin Calcium 5 MG TAKE 1 TABLET BY MOUTH EVERY DAY FOR 30 DAYS for 90 Active Ondansetron 4 MG 1 tablet on the tongue and allow to dissolve Orally 2 times a day for 14 days 03/10/2024 Not-Taking Pramipexole Dihydrochloride 0.5 MG TAKE 1 TABLET BY MOUTH EVERY DAY FOR 30 DAYS for 90 Active Social History Tobacco Use: Social History Observation Description Date Details (start date - stop date) Former Smoker NA - NA Tobacco Use/Smoking Question Answer Notes Are you a former smoker How long has it been since y ou last smoked? 1-5 years Additional Findings: Tobacco User Heavy cigarett e smoker (20-39 cigs/day) Alcohol Screen (Audit-C) Question Answer Notes Did you have a drink contain ing alcohol in the past year? Yes How often did you have a dri nk containing alcohol in the past year? 4 or more times a week (4 points) How many drinks did you have on a typical day when you were drinking in the past year? 1 or 2 drinks (0 point) Points 4 Interpretation Positive Problems Problem Type SNOMED Code ICD Code Onset Dates Problem Status W/U Status Risk Notes Problem Arthritis of left knee ([id number]) Arthritis of knee, left (M17.12) Active confirmed Vital Signs Temperature 97.6 degrees Fahrenheit 01/26/20 Oximetry 93 % 01/26/2025 Heart Rate 89 /min 01/26/2025 Blood pressure systolic 130 mm Hg 01/26/20 Blood pressure diastolic 82 mm Hg 025 Weight 202.0 lbs 01/26/2025 BMI 28.17 kg/m2 01/26/2025 Height 71 in 01/26/2025 Encounters Encounter Location Date Provider Diagnosis [facility] [address] [address] 01/26/2025 Marlon Gutierrez Essential (primary) hypertension I10 ; Generalized anxiety disorder F41.1 ; Impaired fasting blood sugar R73.01 ; Male erectile dysfunction, unspecified N52.9 ; Alcoholic cirrhosis of liver without ascites K70.30 ; Alcohol dependence, uncomplicated F10.20 and Arthritis of knee, left M17.12 Assessments Encounter Date Diagnosis (ICD Code) Assessment Notes Treatment Notes Treatment Clinical Notes Section Notes 01/26/2025 Essential (primary) hypertension (ICD-10 - I10) Mr. Hyatt is a 59-year-old gentleman with erectile dysfunction, CPS/lumbar radiculopathy, hypertension, acid reflux, generalized anxiety disorder, plantar fasciitis of the left foot, cirrhosis follows up with GI in [place] with Dr. Harden is here for follow-up. Plan as follows: HTN: - Blood pressure is within accepted range. Continue on the same regimen. MARISELA: - Stable. Continue on Sertraline to 200mg. Impaired fasting glucose - Recent fasting glucose of 114. Check A1c. Dietary changes have been discussed Alcohol dependence: Alcoholic liver cirrhosis - He is relapsing on etoh. Last drink was on . Different modalities have been discussed again. Worsening of liver function and other complications have been discussed. He is still thinking about Vivitrol - recent LFTS at the hospital were: AST 51 and ALT 35 Polyneuropathy: - Discussed with patient that given he has history of etoh dependence, we have to be careful with narcotics. He is currently on gabapentin 300mg three times a day. Increased gabapentine to 1,200mg daily. He is on short term Morphine to be taken sparingly. Moving forward we can also refer him to pain management Knee arthritis: - Referred pt to orthopedic. Erectile dysfunction - Multifactorial, including medication induced, history of hypertension, and depression. Manas Mcelroy I have rendered the services for this patient under direct supervision of Dr. Mohr, who did not see the patient but was available upon request 01/26/2025 Generalized anxiety disorder (ICD-10 - F41.1) Mr. Hyatt is a 59-year-old gentleman with erectile dysfunction, CPS/lumbar radiculopathy, hypertension, acid reflux, generalized anxiety disorder, plantar fasciitis of the left foot, cirrhosis follows up with GI in [place] with Dr. Harden is here for follow-up. Plan as follows: HTN: - Blood pressure is within accepted range. Continue on the same regimen. MARISELA: - Stable. Continue on Sertraline to 200mg. Impaired fasting glucose - Recent fasting glucose of 114. Check A1c. Dietary changes have been discussed Alcohol dependence: Alcoholic liver cirrhosis - He is relapsing on etoh. Last drink was on . Different modalities have been discussed again. Worsening of liver function and other complications have been discussed. He is still thinking about Vivitrol - recent LFTS at the hospital were: AST 51 and ALT 35 Polyneuropathy: - Discussed with patient that given he has history of etoh dependence, we have to be careful with narcotics. He is currently on gabapentin 300mg three times a day. Increased gabapentine to 1,200mg daily. He is on short term Morphine to be taken sparingly. Moving forward we can also refer him to pain management Knee arthritis: - Referred pt to orthopedic. Erectile dysfunction - Multifactorial, including medication induced, history of hypertension, and depression. Refilled Lilibeth I have rendered the services for this patient under direct supervision of Dr. Mohr, who did not see the patient but was available upon request 01/26/2025 Impaired fasting blood sugar (ICD-10 - R73.01) Mr. Hyatt is a 59-year-old gentleman with erectile dysfunction, CPS/lumbar radiculopathy, hypertension, acid reflux, generalized anxiety disorder, plantar fasciitis of the left foot, cirrhosis follows up with GI in [place] with Dr. Harden is here for follow-up. Plan as follows: HTN: - Blood pressure is within accepted range. Continue on the same regimen. MARISELA: - Stable. Continue on Sertraline to 200mg. Impaired fasting glucose - Recent fasting glucose of 114. Check A1c. Dietary changes have been discussed Alcohol dependence: Alcoholic liver cirrhosis - He is relapsing on etoh. Last drink was on . Different modalities have been discussed again. Worsening of liver function and other complications have been discussed. He is still thinking about Vivitrol - recent LFTS at the hospital were: AST 51 and ALT 35 Polyneuropathy: - Discussed with patient that given he has history of etoh dependence, we have to be careful with narcotics. He is currently on gabapentin 300mg three times a day. Increased gabapentine to 1,200mg daily. He is on short term Morphine to be taken sparingly. Moving forward we can also refer him to pain management Knee arthritis: - Referred pt to orthopedic. Erectile dysfunction - Multifactorial, including medication induced, history of hypertension, and depression. Manas Mcelroy I have rendered the services for this patient under direct supervision of Dr. Mohr, who did not see the patient but was available upon request 01/26/2025 Male erectile dysfunction, unspecified (ICD-10 - N52.9) Mr. Hyatt is a 59-year-old gentleman with erectile dysfunction, CPS/lumbar radiculopathy, hypertension, acid reflux, generalized anxiety disorder, plantar fasciitis of the left foot, cirrhosis follows up with GI in [place] with Dr. Harden is here for follow-up. Plan as follows: HTN: - Blood pressure is within accepted range. Continue on the same regimen. MARISELA: - Stable. Continue on Sertraline to 200mg. Impaired fasting glucose - Recent fasting glucose of 114. Check A1c. Dietary changes have been discussed Alcohol dependence: Alcoholic liver cirrhosis - He is relapsing on etoh. Last drink was on . Different modalities have been discussed again. Worsening of liver function and other complications have been discussed. He is still thinking about Vivitrol - recent LFTS at the hospital were: AST 51 and ALT 35 Polyneuropathy: - Discussed with patient that given he has history of etoh dependence, we have to be careful with narcotics. He is currently on gabapentin 300mg three times a day. Increased gabapentine to 1,200mg daily. He is on short term Morphine to be taken sparingly. Moving forward we can also refer him to pain management Knee arthritis: - Referred pt to orthopedic. Erectile dysfunction - Multifactorial, including medication induced, history of hypertension, and depression. Manas Mcelroy I have rendered the services for this patient under direct supervision of Dr. Mohr, who did not see the patient but was available upon request 01/26/2025 Alcoholic cirrhosis of liver without ascites (ICD-10 - K70.30) Mr. Hyatt is a 59-year-old gentleman with erectile dysfunction, CPS/lumbar radiculopathy, hypertension, acid reflux, generalized anxiety disorder, plantar fasciitis of the left foot, cirrhosis follows up with GI in [place] with Dr. Harden is here for follow-up. Plan as follows: HTN: - Blood pressure is within accepted range. Continue on the same regimen. MARISELA: - Stable. Continue on Sertraline to 200mg. Impaired fasting glucose - Recent fasting glucose of 114. Check A1c. Dietary changes have been discussed Alcohol dependence: Alcoholic liver cirrhosis - He is relapsing on etoh. Last drink was on . Different modalities have been discussed again. Worsening of liver function and other complications have been discussed. He is still thinking about Vivitrol - recent LFTS at the hospital were: AST 51 and ALT 35 Polyneuropathy: - Discussed with patient that given he has history of etoh dependence, we have to be careful with narcotics. He is currently on gabapentin 300mg three times a day. Increased gabapentine to 1,200mg daily. He is on short term Morphine to be taken sparingly. Moving forward we can also refer him to pain management Knee arthritis: - Referred pt to orthopedic. Erectile dysfunction - Multifactorial, including medication induced, history of hypertension, and depression. Manas Mcelroy I have rendered the services for this patient under direct supervision of Dr. Mohr, who did not see the patient but was available upon request 01/26/2025 Alcohol dependence, uncomplicated (ICD-10 - F10.20) Mr. Hyatt is a 59-year-old gentleman with erectile dysfunction, CPS/lumbar radiculopathy, hypertension, acid reflux, generalized anxiety disorder, plantar fasciitis of the left foot, cirrhosis follows up with GI in [place] with Dr. Harden is here for follow-up. Plan as follows: HTN: - Blood pressure is within accepted range. Continue on the same regimen. MARISELA: - Stable. Continue on Sertraline to 200mg. Impaired fasting glucose - Recent fasting glucose of 114. Check A1c. Dietary changes have been discussed Alcohol dependence: Alcoholic liver cirrhosis - He is relapsing on etoh. Last drink was on . Different modalities have been discussed again. Worsening of liver function and other complications have been discussed. He is still thinking about Vivitrol - recent LFTS at the hospital were: AST 51 and ALT 35 Polyneuropathy: - Discussed with patient that given he has history of etoh dependence, we have to be careful with narcotics. He is currently on gabapentin 300mg three times a day. Increased gabapentine to 1,200mg daily. He is on short term Morphine to be taken sparingly. Moving forward we can also refer him to pain management Knee arthritis: - Referred pt to orthopedic. Erectile dysfunction - Multifactorial, including medication induced, history of hypertension, and depression. Manas Mcelroy I have rendered the services for this patient under direct supervision of Dr. Mohr, who did not see the patient but was available upon request 01/26/2025 Arthritis of knee, left (ICD-10 - M17.12) Mr. Hyatt is a 59-year-old gentleman with erectile dysfunction, CPS/lumbar radiculopathy, hypertension, acid reflux, generalized anxiety disorder, plantar fasciitis of the left foot, cirrhosis follows up with GI in [place] with Dr. Harden is here for follow-up. Plan as follows: HTN: - Blood pressure is within accepted range. Continue on the same regimen. MARISELA: - Stable. Continue on Sertraline to 200mg. Impaired fasting glucose - Recent fasting glucose of 114. Check A1c. Dietary changes have been discussed Alcohol dependence: Alcoholic liver cirrhosis - He is relapsing on etoh. Last drink was on . Different modalities have been discussed again. Worsening of liver function and other complications have been discussed. He is still thinking about Vivitrol - recent LFTS at the hospital were: AST 51 and ALT 35 Polyneuropathy: - Discussed with patient that given he has history of etoh dependence, we have to be careful with narcotics. He is currently on gabapentin 300mg three times a day. Increased gabapentine to 1,200mg daily. He is on short term Morphine to be taken sparingly. Moving forward we can also refer him to pain management Knee arthritis: - Referred pt to orthopedic. Erectile dysfunction - Multifactorial, including medication induced, history of hypertension, and depression. Refilled Cialis I have rendered the services for this patient under direct supervision of Dr. Mohr, who did not see the patient but was available upon request Plan Of Treatment Medication Medication Name Sig Start Date Stop Date Notes Sertraline HCl 200 MG 1 capsule Orally O nce a day for 30 days Cialis 10 MG 1 tablet as needed O rally Once a day for 2 days 01/26/2025 Referrals Referral Date Details 01/26/2025 01/26/2025, Please e valuate and treat, refer to [facility] Next Appt Details Follow Up: 6 Months, Reason: Provider Name:Marlon rush, 07/30/2025 11:00:00 AM, [address] [place] [address], [phone], Progress Notes * TITI HYATT PDOB:1964 (59 yo M)Acc No.[id number]:01/26/2025 Progress Notes Patient:?TITI HYATT P Provider:?Marlon Gutierrez :1965???Age:59 Y???Sex:Male Peter e:01/26/2025 Address:[address] [place], [place] [id number] Pcp:LLOYD MOHR Subjective: * Chief Complaints: * ???1 month f/u MARISELA * HPI: ???Internal Medicine:?Mr. Hyatt is a 59-year-old gentleman with erectile dysfunction, CPS/lumbar radiculopathy, hypertension, acid reflux, generalized anxiety disorder, plantar fasciitis of the left foot, cirrhosis follows with Dr. Harden, pancreatitis secondary to alcohol is here for Follow-up. He states that his mood has been stable on the sertraline 200 mg.? He states that his last alcoholic drink was on Saturday, he only had 1 drink, but he is still thinking about the vivitrol injection for alcohol cessation. He states that he has been experiencing left knee pain, which has been chronic he states that he used to get intra-articular injections but orthopedic retired, he is looking for a new provider.? He denies any other active issues. * ROS:?General/Constitutional:?Overall health?Good.?Change in appetite?denies.?Chills?denies.?Fever?denies.?Night sweats?denies.?Sleep disturbance?denies.?Weight gain?denies.?Neurologic:?Difficulty speaking?denies.?Dizziness?denies.?Gait abnormality?denies.?Headache?denies.?Loss of strength?denies.?Memory loss?denies.?Seizures?denies.?Tingling/Numbness?denies .?Ophthalmologic:?Blurred vision?denies.?Discharge?denies.?Dry eye?denies.?Red eye?denies.?ENT:?Change in Voice?Denies.?Cold Symptoms?Denies.?Cough?Denies.?Dizziness?Denies.?Nasal Congestion?Denies.?Otalgia?Denies.?postnasal drip?Denies.?Blocked ear?denies.?Nosebleed?denies.?Snoring?denies.?Cardiovascular:?Diaphoresis?Denies.?Pedal Edema?Denies.?PND (Paroxsymal nocturnal dyspnea)?Denies.?Chest pain?denies.?Difficulty laying flat?denies.?Dyspnea on exertion?denies.?Heart murmur?denies.?Orthopnea?denies.?Respiratory:?Snoring?denies.?Asthma?denies.?Cough?denies.?Shortness of breath with exertion?denies.?Sputum production?denies.?Wheezing?denies.?Gastrointestinal:?Change in bowel habits?denies.?Constipation?denies.?Decreased appetite?denies.?Diarrhea?denies.?Heartburn?denies.?Nausea?denies.?Vomiting?cherelle es.?Musculoskeletal:?tingling/numbness?Denies.?myalgias?Denies.?Joint Swelling?Denies.?extremeties?normal.?Patient complaining of?neuropathy.?Arthritis?,admits.?Back problems?denies.?Carpal tunnel?denies.?Joint stiffness?denies.?Muscle aches?denies.?Endocrine:?Bowel Changes?Denies.?Breast Discharge?Denies.?poor libido?Denies.?Cold intolerance?denies.?Excessive sweating?denies.?Excessive thirst?denies.?Frequent urination?denies.?Thyroid problems?denies.?Skin:?Bruising?Denies.?Eczema?denies.?Hair changes?denies.?Rash?denies.?Skin lesion(s)?denies.?Psychiatric:?Anxiety?admits.?Depressed mood?denies.?Difficulty sleeping?denies.?Nervous breakdown?denies.?Substance abuse?etoh on New years?.? * Medical History:? * Surgical History:?[address] Marlow 2007, at [facility] and fusion at [facility] in 2008 left knee surgery * Hospitalization/Major Diagno stic Procedure:? * Family History:?Father: diag nosed with Diabetes, Hypertension.?Siblings: diagnosed with Diabetes.? Father had HLD. * Social History:?Tobacco Use:?Tobacco Use/Smoking?Are you a?former smoker ?How long has it been since you last smoked??1-5 years ?Additional Findings: Tobacco User?Heavy cigarette smoker (20-39 cigs/day) ???Drugs/Alcohol:?Drugs?Have you used drugs other than those for medical reasons in the past 12 months??No ?Alcohol Screen (Audit-C)?Did you have a drink containing alcohol in the past year??Yes ?How often did you have a drink containing alcohol in the past year??4 or more times a week (4 points) ?How many drinks did you have on a typical day when you were drinking in the past year??1 or 2 drinks (0 point) ?Points?4 ?Interpretation?Positive ?Caffeine?Intake:?none ?Do you smoke marijuana?: Admits. ?Do you drink alcohol?: yes?.?Miscellaneous:?Exercise: 1-2 times per week. ?Marital status: . * Medications:?TakingVitamin B 6 50 MG Tablet 1 tablet Orally CoQ-10 200 MG Capsule as directed Orally traZODone HCl 50 MG Tablet 1 tablet at bedtime as needed Orally Once a day Vitamin B12 100 MCG Tablet 100 mg Orally daily , Notes to Pharmacist: 2 gummies dailyThiamine HCl 100 MG Tablet 1 tablet Orally Once a day Folic Acid 1 MG Tablet 1 tablet Orally Once a day cloNIDine HCl 0.2 MG Tablet 1 tablet in the morning and two at night Orally twice a day Gabapentin 300 MG Capsule 1 capsule Orally four times a day tiZANidine HCl 4 MG Tablet TAKE 1 TABLET BY MOUTH EVERY DAY AT BEDTIME NEEDED FOR 30 DAYS hydrOXYzine HCl 25 MG Tablet TAKE 1 TABLET BY MOUTH EVERY 8 HOURS amLODIPine Besylate 2.5 MG Tablet TAKE 1 TABLET BY MOUTH EVERY DAY FOR 30 DAYS Dicyclomine HCl 20 MG Tablet TAKE 1 TABLET BY MOUTH THREE TIMES A DAY FOR 30 DAYS [facility] Iron 325 (65 Fe) MG Tablet TAKE 1 TABLET BY MOUTH EVERY DAY FOR 30 DAYS Sertraline HCl 200 MG Capsule 1 capsule Orally Once a day Morphine Sulfate ER 10 MG Capsule Extended Release 24 Hour 1 capsule Orally Once a day , Notes to Pharmacist: Partial Fill upon Patient RequestPramipexole Dihydrochloride 0.5 MG Tablet TAKE 1 TABLET BY MOUTH EVERY DAY FOR 30 DAYS Rosuvastatin Calcium 5 MG Tablet TAKE 1 TABLET BY MOUTH EVERY DAY FOR 30 DAYS Taking Vitamin B6 50 MG Tablet 1 tablet Orally Taking CoQ- 10 200 MG Capsule as directed Orally Taking traZODone HCl 50 MG Tablet 1 tablet at bedtime as needed Orally Once a day Taking Vitamin B12 100 MCG Tablet 100 mg Orally daily , Notes to Pharmacist: 2 gummies dailyTaking Thiamine HCl 100 MG Tablet 1 tablet Orally Once a day Taking Folic Acid 1 MG Tablet 1 tablet Orally Once a day Taking cloNIDine HCl 0.2 MG Tablet 1 tablet in the morning and two at night Orally twice a day Taking Gabapentin 300 MG Capsule 1 capsule Orally four times a day Taking tiZANidine HCl 4 MG Tablet TAKE 1 TABLET BY MOUTH EVERY DAY AT BEDTIME NEEDED FOR 30 DAYS Taking hydrOXYzine HCl 25 MG Tablet TAKE 1 TABLET BY MOUTH EVERY 8 HOURS Taking amLODIPine Besylate 2.5 MG Tablet TAKE 1 TABLET BY MOUTH EVERY DAY FOR 30 DAYS Taking Dicyclomine HCl 20 MG Tablet TAKE 1 TABLET BY MOUTH THREE TIMES A DAY FOR 30 DAYS Taking [facility] Iron 325 (65 Fe) MG Tablet TAKE 1 TABLET BY MOUTH EVERY DAY FOR 30 DAYS Taking Sertraline HCl 200 MG Capsule 1 capsule Orally Once a day Taking Morphine Sulfate ER 10 MG Capsule Extended Release 24 Hour 1 capsule Orally Once a day , Notes to Pharmacist: Partial Fill upon Patient RequestTaking Pramipexole Dihydrochloride 0.5 MG Tablet TAKE 1 TABLET BY MOUTH EVERY DAY FOR 30 DAYS Taking Rosuvastatin Calcium 5 MG Tablet TAKE 1 TABLET BY MOUTH EVERY DAY FOR 30 DAYS Not- TakingSertraline HCl 150 MG Capsule 1 capsule Orally Once a day Ondansetron 4 MG Tablet Disintegrating 1 tablet on the tongue and allow to dissolve Orally 2 times a day tiZANidine HCl 2 MG Tablet 1 tablet at bedtime as needed Orally Once a day Furosemide 40 MG Tablet 1 tablet Orally Once a day Furosemide 40 MG Tablet TAKE 1 TABLET BY MOUTH EVERY DAY FOR 90 DAYS , Notes to Pharmacist: GI doctor recommended to stop the medicationSpironolactone 25 MG Tablet TAKE 1 TABLET BY MOUTH EVERY DAY , Notes to Pharmacist: GI doctor recommended to stop the medicationPantoprazole Sodium 20 MG Tablet Delayed Release 1 tablet Orally Once a day Calcium Magnesium Celecoxib 100 MG Capsule TAKE 1 CAPSULE BY MOUTH EVERY DAY WITH FOOD FOR 30 DAYS Naltrexone HCl 50 MG Tablet 1 tablet Orally Once a day Diclofenac Sodium 1 % Gel DIRECTED EXTERNALLY 2 TIMES A DAY FOR 30 DAYS Medication List reviewed and reconciled with the patientNot-Taking Sertraline HCl 150 MG Capsule 1 capsule Orally Once a day Not-Taking Ondansetron 4 MG Tablet Disintegrating 1 tablet on the tongue and allow to dissolve Orally 2 times a day Not-Taking tiZANidine HCl 2 MG Tablet 1 tablet at bedtime as needed Orally Once a day Not-Taking Furosemide 40 MG Tablet 1 tablet Orally Once a day Not-Taking Furosemide 40 MG Tablet TAKE 1 TABLET BY MOUTH EVERY DAY FOR 90 DAYS , Notes to Pharmacist: GI doctor recommended to stop the medicationNot-Taking Spironolactone 25 MG Tablet TAKE 1 TABLET BY MOUTH EVERY DAY , Notes to Pharmacist: GI doctor recommended to stop the medicationNot-Taking Pantoprazole Sodium 20 MG Tablet Delayed Release 1 tablet Orally Once a day Not-Taking Calcium Not-Taking Magnesium Not-Taking Celecoxib 100 MG Capsule TAKE 1 CAPSULE BY MOUTH EVERY DAY WITH FOOD FOR 30 DAYS Not-Taking Naltrexone HCl 50 MG Tablet 1 tablet Orally Once a day Not-Taking Diclofenac Sodium 1 % Gel DIRECTED EXTERNALLY 2 TIMES A DAY FOR 30 DAYS Medication List reviewed and reconciled with the patient * Allergies:?MRI Contrast: All ergyLisinopril: swelling of face - Side Effectsno[Allergies Verified] Objective: * Vitals:?Temp:97.6F, Oxygen s at %:93%, HR:89/min, BP:130/82mm Hg, Wt:202.0lbs, BMI:28.17Index, Ht: 71 in. * Examination: ???General Examination: ?Psychiatry?Normal.?GENERAL APPEARANCE:?Well developed, well nourished, in no acute distress.?MUSCULOSKELETAL:?normal,Left knee crepitation.?HEAD:?Normocephalic, atraumatic.?EYES:?Pupils equal, round, reactive to light and accommodation, sclera non-icteric.?EARS:?Normal.?ORAL CAVITY:?normal.?SINUSES?Normal.?NECK/THYROID:?Neck supple, full range of motion, no cervical lymphadenopathy.?SKIN:?Warm and dry, no suspicious lesions.?HEART:?systolic murmur, mitral valve area.?LUNGS:?clear to auscultation bilaterally, no wheezes, rales, rhonchi.?BREASTS:?__.?ABDOMEN:?Soft, nontender, nondistended, bowel sounds present, normal.?EXTREMITIES:?Normal,.?PERIPHERAL PULSES:?Normal.?NEUROLOGIC:?Nonfocal,? appropriate?motor strength normal upper and lower extremities, sensory exam intact.?FEMALE GENITOURINARY:?__.?MALE GENITOURINARY:?__.?PODIATRIC:?Normal.?Ell Tutor? .? Assessment: * Assessment: 1.?Essential (primary) hyper tension - I10???2.?Generalized anxiety disorder - F41.1???3.?Impaired fasting blood sugar - R73.01???4.?Male erectile dysfunction, unspecified - N52.9???5.?Alcoholic cirrhosis of liver without ascites - K70.30???6.?Alcohol dependence, uncomplicated - F10.20???7.?Arthritis of knee, left - M17.12??? Mr. Hyatt is a 59-year-ol d gentleman with erectile dysfunction, CPS/lumbar radiculopathy, hypertension, acid reflux, generalized anxiety disorder, plantar fasciitis of the left foot, cirrhosis follows up with GI in [place] with Dr. Harden is here for follow-up. Plan as follows: HTN: - Blood pressure is within accepted range. Continue on the same regimen. MARISELA: - Stable. Continue on Sertraline to 200mg.?? Impaired fasting glucose - Recent fasting glucose of 114.? Check A1c.? Dietary changes have been discussed Alcohol dependence: Alcoholic liver cirrhosis - He is relapsing on etoh. Last drink was on . Different modalities have been discussed again. Worsening of liver function and other complications have been discussed. He is still thinking about Vivitrol - recent LFTS at the hospital were: AST 51 and ALT 35 Polyneuropathy: - Discussed with patient that given he has history of etoh dependence, we have to be careful with narcotics. He is currently on gabapentin 300mg three times a day. Increased gabapentine to 1,200mg daily. He is on short term Morphine to be taken sparingly. Moving forward we can also refer him to pain management Knee arthritis: - Referred pt to orthopedic.? Erectile dysfunction - Multifactorial, including medication induced, history of hypertension, and depression.? Refilled Cialis I have rendered the services for this patient under direct supervision of Dr. Mohr, who did not see the patient but was available upon request Plan: * Treatment: 2.?Impaired fasting blood gonzalez gar?LAB: Hemoglobin [id number] 3.?Male erectile dysfunction , unspecified? Start Cialis Tablet, 10 MG, 1 tablet as needed, Orally, Once a day, 2 days, 2 Tablet, Refills 3.?? 4.?Arthritis of knee, left? Referral To:Orthopedic Surgery ?Reason:Please evaluate and treat, refer to Ammy * Procedure Codes:?3079F DIAST BP 80-89 MM [id number] SYST BP GE 130 - 139MM HG * Follow Up:?6 Months * * Sign off status: Completed true * Provider:?Marlon Gutierrez Date:?01/26/20 25 Generated for Nicolette mix/Miracle/Glo on:?02/17/2025 12:48 PM EDT History and Physical Notes * HPI (History of Present Illness) Category Sub-Category Detail Notes Category Not es Internal Medicine Mr. Sunny sarabia is a 59-year-old gentleman with erectile dysfunction, CPS/lumbar radiculopathy, hypertension, acid reflux, generalized anxiety disorder, plantar fasciitis of the left foot, cirrhosis follows with Dr. Harden, pancreatitis secondary to alcohol is here for Follow-up. He states that his mood has been stable on the sertraline 200 mg. He states that his last alcoholic drink was on Saturday, he only had 1 drink, but he is still thinking about the vivitrol injection for alcohol cessation. He states that he has been experiencing left knee pain, which has been chronic he states that he used to get intra-articular injections but orthopedic retired, he is looking for a new provider. He denies any other active issues. Examination Category Sub-Category Detail Notes Category Not es General Examination GENERAL APPEARANCE: Well dev eloped, well nourished, in no acute distress HEAD: Normocephalic, atrau matic EYES: Pupils equal, round, reactive to light and accommodation, sclera non-icteric EARS: Normal NECK/THYROID: Neck supple, full ra nge of motion, no cervical lymphadenopathy HEART: systolic murmur, tracy ral valve area LUNGS: clear to auscultatio n bilaterally, no wheezes, rales, rhonchi ABDOMEN: Soft, nontender, non distended, bowel sounds present, normal NEUROLOGIC: Nonfocal, appropriat e motor strength normal upper and lower extremities, sensory exam intact SKIN: Warm and dry, no lan picious lesions EXTREMITIES: Normal, PERIPHERAL PULSES: Normal BREASTS: __ MUSCULOSKELETAL: normal, Left knee cr epitation MALE GENITOURINARY: __ FEMALE GENITOURINARY: __ ORAL CAVITY: normal PODIATRIC: Normal Psychiatry Normal SINUSES Normal Ell Tutor Consultation Request Notes Referral Date Referring Provider Referred Provider Not es 01/26/2025 Marlon Gutierrez , Please eval uate and treat, refer to Ammy
== END 2025-02-17 11:15 | disposition home or self-care (01) ==
LOC: HO.HKAS 10:45
PROVIDERS: PCP Hospitalist; Visit Provider Internal Medicine Hypertension Specialist
DX: N18.9 Chronic kidney disease, unspecified (principal)
CPT/HCPCS: 99214

== ENCOUNTER → 2025-02-17 10:45 | Outpatient (BNVA) | payer OTHER, SELFPAY | PROVIDERS: PCP Hospitalist; Visit Provider Internal Medicine Hypertension Specialist | DX: N18.9 Chronic kidney disease, unspecified (principal) | CPT/HCPCS: 99212 ==

== ENCOUNTER 2025-10-20 10:47 | Outpatient (AMB) | payer OTHER, SELFPAY ==
--- OUTSIDE RECORDS SUMMARY | 2024-09-03 06:00 | XMS_ITS ---
Author Organization [facility] Address [address] [place] [address] Care Team Providers Care Bass Fisher Name Role Phone LLOYD MOHR Primary Care Provider Marlon Gutierrez Unavailable [phone] REASON FOR VISIT 3 month f/u Encounters Encounter Location Date Provider Diagnosis [facility] [address] [phone] 09/03/2024 Marlon Gutierrez Plan Of Treatment Next Appt Details Provider Name:Marlon rush, 11/11/2025 01:30:00 PM, [address] [place] [address], [place], [phone], Progress Notes * Pantera HYATT PDOB:1964 (60 yo M)Acc No.[id number]:09/03/2024 Progress Notes Patient: [place] Pantera PLUMMER Appointment Provider: Rene Gutierrez :1965 A ge:59 Y S ex:Male Date:09/03/2024 Address:[address] [place], [place] [id number] Pcp:LLOYD MOHR Subjective: * Chief Complaints: * 1 . 3 month f/u. * Medical History: Objective: * Vitals: Assessment: Plan: * Treatment: * Procedure Codes: N OSHO NO SHOW FEE * Images: * Electronic signature of Daryn Gutierrez PA-C on 10/20/2025 at 09:15 PM EST Sign off status: Pending * Appointment Provider: Rene Gutierrez Date: Generated for Nicolette mix/Miracle/Glo on: 12/20/2024 09:15 PM EST
--- OUTSIDE RECORDS SUMMARY | 2025-07-30 06:00 | XMS_ITS ---
Author Organization [facility] Address [address] [address] Care Team Providers Care Top Precipitator Operator Name Role Phone LLOYD MOHR Primary Care Provider [phone] Marlon Gutierrez [phone] REASON FOR VISIT CPE Encounters Encounter Location Date Provider Diagnosis [facility] [address] [address] 07/30/2025 Marlon Gutierrez Plan Of Treatment Next Appt Details Provider Name:Marlon rush, 11/11/2025 01:30:00 PM, [address] [address], [place], [address], Progress Notes * Pantera HYATT PDOB:1964 (60 yo M)Acc No.[id number]:07/30/2025 Progress Notes Patient: Lincoln Pantera PLUMMER Appointment Provider: Rene Gutierrez :1965 A ge:60 Y S ex:Male Date:07/30/2025 Address:[address] [place], [place] [phone] Pcp:LLOYD MOHR Subjective: * Chief Complaints: * 1 . CPE. * Medical History: Objective: * Vitals: Assessment: Plan: * Treatment: * Procedure Codes: N OSHO NO SHOW FEE * Preventive Medicine: C OVID FLU TDAP SHINGRIX RSV BMD COLONSCOPY EYE EXAM. * Images: * Electronic signature of Daryn Gutierrez PA-C on 10/20/2025 at 09:15 PM EST Sign off status: Pending * Appointment Provider: Rene Gutierrez Date: 0 07/30/2025 Generated for Nicolette mix/Miracle/Glo on: 1 12/20/2024 09:15 PM EST
--- OUTSIDE RECORDS SUMMARY | 2025-10-20 06:16 | XMS_ITS ---
Author Organization [facility] Address [address] [address] Care Team Providers Care Duct Layer Name Role Phone LLOYD MOHR Primary Care Provider [phone] Marlon Gutierrez [phone] REASON FOR VISIT Labs Encounters Encounter Location Date Provider Diagnosis [facility] [address] [address] 10/20/2025 Marlon Gutierrez Abnormal results of thyroid function studies R94.6 Assessments Encounter Date Diagnosis (ICD Code) Assessment Notes Treatment Notes Treatment Clinical Notes Section Notes 10/20/2025 Abnormal results of thyroid function studies (ICD-10 - R94.6) Plan Of Treatment Pending Test Test Name Order Date TSH+Free T4 10/20/2025 Next Appt Details Provider Name:Marlon Palafoxalbertobo rush, 11/11/2025 01:30:00 PM, [address] [place] [address], [place], [address], Progress Notes * Pantera HYATT PDOB:1964 (60 yo M)Acc No.[id number]:10/20/2025 Patient: Lincoln Pantera PLUMMER :1965 A ge:60 Y S ex:Male Address:[address] [place] [id number] Subjective: * Chief Complaints: * L abs * Medical History: * Surgical History: * Hospitalization/Major Diagno stic Procedure: * Medications: Objective: * Vitals: * Physical Examination: Assessment: * Assessment: 1. A bnormal results of thyroid function studies - R94.6 Plan: * Treatment: * Procedure Codes: * true * Date: Generated for Nicolette mix/Miracle/Glo on: 12/20/2024 09:15 PM EST
[2025-10-20 10:53] VITALS: BP 154/90; PULSE 81; O2SAT 98; BMI 28.1
--- NOTE | 2025-10-20 10:53 | HO.NEPHOV ---
Vital Signs 10/20/25 10:53 10/20/25 11:04 Height 6 ft Weight 207 lb BMI 28.1 BP 154/90 H 136/74 Blood Pressure Location Lt brachial Lt brachial Position Sitting Sitting Pulse 81 Pulse Source Pulse Oximeter Pulse Oximetry (%) 98 Oxygen Delivery Method Room Air Intake Visit Reasons: 6 mon follow up,left vm Desizing Machine Operator Head End Required: No Accompanied by: Spouse Allergies adhesive tape Allergy (Verified 10/20/25 10:55) Unknown bees Allergy (Unknown, Uncoded 01/01/24 16:32) Unknown MRI contrast Allergy (Unknown, Uncoded 01/01/24 16:32) Unknown poisin yanci Allergy (Unknown, Uncoded 01/01/24 16:32) Unknown Medication List - Last Reconciled 10/20/25 by Stanislav Miller MD amlodipine 2.5 mg PO DAILY aspirin 325 mg PO BID baclofen 10 mg PO TID PRN epinephrine (EpiPen) 0.3 mg IM Q4H PRN ferrous sulfate 325 mg PO DAILY pantoprazole 40 mg PO DAILY rosuvastatin 5 mg PO DAILY sertraline 200 mg PO DAILY trazodone 50 mg PO BEDTIME PRN HPI Comments Details: Middle aged man with CKD is here for follow up Still smokes pot. Denies alcohol intake Still has Cramps but improved- Takes Magnesium and Iron supplements 02/17/25- Cramps are better 10/20/25 The patient is a 60-year-old male presenting for a follow-up visit for CKD. Review of the October 12 labs shows his creatinine has improved to 1.07 mg/dL from a previous 1.9 mg/dL, and his BUN is 9. His cholesterol level has increased to 214 from a previous 165; he is currently on rosuvastatin. In his past medical history, the patient has been hospitalized twice for acute pancreatitis of an unknown cause, during which time his weight dropped to 170 pounds. He also had a period of poor appetite and was taking iron supplements. The patient recently underwent a total hip replacement on September 13 and is still using a cane for support to prevent falls. He reports some pain if he moves his hip the wrong way and notes the incision is still swollen. His blood pressure was elevated today, which he attributes to drinking coffee and forgetting to take his blood pressure medication this morning. He has gained approximately 9 pounds Since January. PFSH Surgical History (Updated 10/20/25 @ 10:55 by BECKY Arciniega) History of total hip replacement (~09/2025) History of back surgery Social History Patient Tobacco Use Status: Never used Tobacco Physical Exam Vital Signs: Last Vital Signs Pulse 81 10/20/25 10:53 BP 136/74 10/20/25 11:04 Pulse Ox 98 10/20/25 10:53 Oxygen Delivery Method Room Air 10/20/25 10:53 BMI result Body Mass Index 28.1 Const General: comfortable Nutritional Appearance: well nourished Orientation/consciousness: patient oriented x3 HEENT Head: No normal to inspection Mouth: moist mucous membranes Neck Neck: Yes supple and Yes no JVD Resp Auscultation: clear to auscultation bilaterally and no rales Cardio Jugular venous distension: no JVD Palpation: no palpable S3 and no palpable S4 Heart sounds: Murmur heart sound present and no rubs GI Palpation (GI): Soft to palpation and nontender Percussion: No Fluid wave present General: Yes no CVA tenderness Back/Spine/Pelvis Back: no CVA tenderness Skin General skin exam: no rashes or lesions noted Neuro General: patient oriented x3 Extrem General: Yes no pedal edema and No clubbing Results Reviewed Results Reviewed: 10/12/2025. BUN 9 Creatinine 1.07. Nephrology Results: Hgb, (14.0-18.0) 12.0 g/dl L 07/03/21 WBC, (4.8-10.8) 7.2 X10*3/uL 07/03/21 Plt Count, (160-400) 234 X10*3/uL 07/03/21 Sodium, (135-145) 136 mmol/L 08/12/24 Potassium, (3.3-5.1) 5.5 mmol/L H 08/12/24 Chloride, (96-108) 101 mmol/L 08/12/24 Carbon Dioxide, (22-29) 30 mmol/L H 08/12/24 BUN, (9-16) 22 mg/dL H 08/12/24 Creatinine, (0.5-1.4) 1.91 mg/dL H 08/12/24 Calcium, (8.4-10.2) 9.6 mg/dL 08/12/24 Assessment & Plan Assessment & Plan (1) CKD (chronic kidney disease): Code(s): N18.9 - Chronic kidney disease, unspecified Category: Medical Plan Middle aged man with CKD Renal function is close to baseline- shall follow labs Recent Cr is 1.07 Continue to avoid nephrotoxins including NSAIDS and illicit drugs Keep I > O Use tonic water to alleviate cramps BP acceptable Encouraged to stay on low salt diet No changes were made Orders: Orders Basic Metabolic Panel 6 Months N18.9 - Chronic kidney disease, unspecified Coding Level of Care Code Est Pt Level 4 (49227) Diagnoses CKD (chronic kidney disease) N18.9
[2025-10-20 11:04] VITALS: BP 136/74
--- OUTSIDE RECORDS SUMMARY | 2025-10-20 21:15 | XMS_ITS | Clinical Summary ---
Author Organization [facility] Address [address] [place] [address] Phone Care Team Providers Care Supervisor Net Making Name Role Phone Sheba Ayala MD Primary Care Provider [phone] Allergies Active Allergy Reactions Criticality Noted Date [...] chronic peripheral neuropathy . Gouty arthritis of ankle and/or foot 11/08/2017 Basal cell carcinoma of skin 09/09/2017 Overview (04/03/2021): Left upper back. 08/09/2017 Overview: Left upper back. 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 Janelle Ware @ [facility] [place] Hyperlipidemia 03/09/2017 Overview (04/03/2021): 10 year ASCVD risk = 14.5% Alcohol dependence 02/18/2017 Alcoholic fatty liver 02/18/2017 Essential hypertension 02/18/2017 Osteoarthrosis of the carpometacarpal joint of t he thumb 02/18/2017 Tobacco user 02/18/2017 Spondylolisthesis 06/21/2011 Overview (04/03/2021): Spondylolisthesis Overview: Spondylolisthesis Immunizations Immunization Administration Dates Next Due Hepatitis B 11/08/2017,03/14/2017 [...] Due Date Last Done Comments Pneumococcal Vaccine: 50+ Years (1 of 2 - PCV) 1983 Colorectal Cancer Screening: Annual FOBT 2013 Colorectal Cancer Screening: Colonoscopy 2013 Colorectal Cancer Screening: Sigmoidoscopy 2013 Influenza Vaccine (#1) 2025 Hepatitis B Vaccine Aged Out 11/08/2017, 03/14/2017 No longer eligible based on patient's age to complete this topic Care Teams Supervisor Net Making Relationship Specialty Start Date End Date Sheba Ayala MD [address] [place] [id number] PCP - General Internal Medicine 12/02/20
--- OUTSIDE RECORDS SUMMARY | 2025-10-20 21:15 | XMS_ITS | Patient Health Record ---
Author Organization [facility] Address [address] [place] [address] Care Team Providers Care Delivery Rn Name Role Phone LLOYD MOHR Primary Care Provider Gracymurali Marlon Unavailable [phone] Allergies Allergen (clinical drug ingredient) Drug/Non Drug Allergy documented on EMR Reaction Allergy Type Onset Date Status MRI Contrast (uncoded) Unknown Allergy Active lisinopril Lisinopril swelling of face Drug Allergy Active Results Component Value Reference Range Notes Methylmalonic Acid, Serum-70 6961 Reviewed date:10/20/2025 12:30:29 AM Interpretation: Performing Lab:[facility], Radha Galeano, [address], [place] [facility], Phone - [phone], Director - [facility] Notes/Report: Test(s) 117614-Vdghypqynlqxd Acid, Serum was developed and its performance characteristics determined by [employer]. It has not been cleared or approved by the Food and Drug Administration. PSA (Serial Monitor)-[id number] Reviewed date:10/13/2025 10:12:27 AM Interpretation: Performing Lab:[facility] Radha Marilynn [address]ale[address], [address], [place], Phone - [phone], Director - [facility] Notes/Report: Test(s) 748319-Qxdrngzigpcbv Acid, Serum was developed and its performance characteristics determined by [email or web address]. It has not been cleared or approved by the Food and Drug Administration. Prostate Specific Ag 0.3 0.0-4.0 ng/mL Mirtha ECLIA methodology. . According to the [employer] [employer], Serum PSA should decrease and remain at undetectable levels after radical prostatectomy. The AUA defines biochemical recurrence as an initial PSA value 0.2 ng/mL or greater followed by a subsequent confirmatory PSA value 0.2 ng/mL or greater. Values obtained with different assay methods or kits cannot be used interchangeably. Results cannot be interpreted as absolute evidence of the presence or absence of malignant disease. Comp. Metabolic Panel (13)-[id number] Reviewed date:10/13/2025 10:10:48 AM Interpretation: Performing Lab:[facility], [address], [place], Phone - [phone], Director - [facility] Notes/Report: Test(s) 012809-Sshcpemgdgute Acid, Serum was developed and its performance characteristics determined by [facility]. It has not been cleared or approved by the Food and Drug Administration. Glucose 122 70-99 mg/dL BUN 10 8-27 mg/dL Creatinine 1.07 0.76-1.27 mg/dL eGFR 79 >59 mL/min/1.73 BUN/Creatinine Ratio 9 10-24 Sodium 140 134-144 mmol/L Potassium 4.2 3.5-5.2 mmol/L Chloride 100 96-106 mmol/L Carbon Dioxide, Total 25 20-29 mmol/L Calcium 9.9 8.6-10.2 mg/dL Protein, Total 8.2 6.0-8.5 g/dL Albumin 4.6 3.9-4.9 g/dL Globulin, Total 3.6 1.5-4.5 g/dL Bilirubin, Total 0.6 0.0-1.2 mg/dL Alkaline Phosphatase 166 47-123 IU/L AST (SGOT) 40 0-40 IU/L Lipid Panel-[id number] Reviewed date:10/13/2025 10:14:09 AM Interpretation: Performing Lab:[facility], [address], [place], Phone - [phone], Director - [facility] Notes/Report: Test(s) 745167-Gvryyayzttyaw Acid, Serum was developed and its performance characteristics determined by [facility]. It has not been cleared or approved by the Food and Drug Administration. Cholesterol, Total 214 100-199 mg/dL Triglycerides 319 0-149 mg/dL HDL Cholesterol 73 >39 mg/dL VLDL Cholesterol Jhon 52 5-40 mg/dL LDL Chol Calc ([facility]) 89 0-99 mg/dL TSH+Free [id number] Reviewed date:10/20/2025 11:21:37 AM Interpretation: Performing Lab:[facility] [place], Radha Galeano, [address], [place], Phone - [phone], Director - [facility] Notes/Report: Test(s) 441040-Rnljgtplrnqcw Acid, Serum was developed and its performance characteristics determined by [facility]. It has not been cleared or approved by the Food and Drug Administration. TSH 0.345 0.450-4.500 uIU/mL T4,Free(Direct) 1.06 0.82-1.77 ng/dL CBC With Differential/Platel et-[id number] Reviewed date:10/13/2025 10:14:48 AM Interpretation: Performing Lab:[facility], Radha Galeano, [address], [place], Phone - [phone], Director - [facility] Notes/Report: Test(s) 889752-Gwozjvagicmpa Acid, Serum was developed and its performance characteristics determined by [facility]. It has not been cleared or approved by the Food and Drug Administration. WBC 7.9 3.4-10.8 x10E3/uL RBC 4.27 4.14-5.80 x10E6/uL Hemoglobin 13.6 13.0-17.7 g/dL Hematocrit 41.2 37.5-51.0 % MCV 97 79-97 fL MCH 31.9 26.6-33.0 pg MCHC 33.0 31.5-35.7 g/dL RDW 13.2 11.6-15.4 % Platelets 286 150-450 x10E3/uL Neutrophils 67 Not Estab. % Lymphs 21 Not Estab. % Monocytes 10 Not Estab. % Eos 1 Not Estab. % Basos 1 Not Estab. % Neutrophils (Absolute) 5.3 1.4-7.0 x10E3/uL Lymphs (Absolute) 1.7 0.7-3.1 x10E3/uL Monocytes(Absolute) 0.8 0.1-0.9 x10E3/uL Eos (Absolute) 0.1 0.0-0.4 x10E3/uL Baso (Absolute) 0.0 0.0-0.2 x10E3/uL Immature Granulocytes 0 Not Estab. % Immature Grans (Abs) 0.0 0.0-0.1 x10E3/uL Vitamin B12 and Folate-32938 0 Reviewed date:10/13/2025 10:12:47 AM Interpretation: Performing Lab:[facility], Radha Marilynn Galeano, [address], [place], Phone - [phone], Director - [facility] Notes/Report: Test(s) 241824-Nqkcljkrggndy Acid, Serum was developed and its performance characteristics determined by [facility]. It has not been cleared or approved by the Food and Drug Administration. Vitamin B12 431 394-6920 pg/mL Folate (Folic Acid), Serum 10.5 >3.0 ng/mL A serum folate concentration of less than 3.1 ng/mL is considered to represent clinical deficiency. Albumin/Creatinine Ratio,Uri ne-[id number] (Not yet reviewed by provider) Interpretation: Performing Lab:[facility], Phone - [phone], - [place]ada Notes/Report: Albumin, Urine 22.1 Not Estab. ug/mL Alb/Creat Ratio 10 0-29 mg/g creat Normal: 0 - 29 Moderately increased: 30 - 300 Severely increased: >300 Ferritin-[id number] (Not yet rev iewed by provider) Interpretation: Performing Lab:[facility], Radha Marilynn [address]ale[address], [address], [place], Phone - [phone], Director - [facility] Notes/Report: Test(s) 716684-Nbydqksqhxepa Acid, Serum was developed and its performance characteristics determined by [facility]. It has not been cleared or approved by the Food and Drug Administration. Ferritin 675 30-400 ng/mL Hemoglobin E5f-[id number] Reviewed date:02/04/2025 08:56:54 AM Interpretation: Performing Lab:[facility] Benton [facility], [place], Phone - [phone], - [place] Notes/Report: Hemoglobin A1c 6.2 4.8-5.6 % . Prediabetes: 5.7 - 6.4 Diabetes: >6.4 Glycemic control for adults with diabetes: <7.0 Basic Metabolic Panel (7)-30 3758 Reviewed date:01/26/2025 10:36:41 AM Interpretation: Performing Lab:[facility], [place], Phone - [phone], Director Sury Ybarra Notes/Report: Glucose 122 70-99 mg/dL BUN 13 8-27 mg/dL Creatinine 1.19 0.76-1.27 mg/dL eGFR 70 >59 mL/min/1.73 BUN/Creatinine Ratio 11 10-24 Sodium 139 134-144 mmol/L Potassium 5.2 3.5-5.2 mmol/L Chloride 97 96-106 mmol/L Carbon Dioxide, Total 25 20-29 mmol/L Reason For Referral Reason Please evaluate and treat, refer to [facility] Please evaluate and treat Diagnosis 1 Arthritis of knee, l eft (M17.12) Referral Organization [facility] Referring Provider First Name [facility] Referring Provider Last Name [facility] Referred Provider Specialty Orthopedic S urgery General Notes Please call the abdoul ent to schedule the appointment, Vanesa Rolon 03/01/2025 04:37:03 PM > Referral Priority Routine Reason please evaluate and treat Please evaluate and treat Diagnosis 1 Pain in left foot (M 79.672) Referral Organization [facility] Referring Provider First Name Darrell Referring Provider Last Name Gracy Referred Provider Specialty Podiatry General Notes Please call the abdoul ent to schedule the appointment, Encounter created, Vanesa Rolon 10/07/2025 07:20:00 AM > Referral Priority Routine Reason STOP bang score of 6 and Higgins score of 5. Please evaluate and treat Diagnosis 1 Snoring (R06.83) Referral Organization [facility] Referring Provider First Name Darrell Referring Provider Last Name Gracy Referred Provider Specialty Sleep Medici ne General Notes Please call the abdoul ent to schedule the appointment, Encounter created, Vanesa Rolon 10/07/2025 07:12:55 AM > Referral Priority Routine Medications Medication SIG (Take, Route, Frequency, Duration) Notes Start Date End Date Status Vitamin B12 100 MCG 100 mg Orally daily; Duration: 90 days 2 gummies daily Active tiZANidine HCl 2 MG 1 tablet at bedtime as needed Orally Once a day; Duration: 30 days 05/07/2024 Not-Taking CoQ-10 200 MG as directed Orally Active Ondansetron 4 MG 1 tablet on the tongue and allow to dissolve Orally 2 times a day; Duration: 14 days 03/10/2024 Not-Taking Aspirin 325 MG 2 tablet Orally Once a day 10/06/2025 Active Sertraline HCl 150 MG 1 capsule Orally Once a day; Duration: 30 days Not-Taking Spironolactone 25 MG TAKE 1 TABLET BY MOUTH EVERY DAY; Duration: 90 Not-Taking Baclofen 10 mg 1 tablet as needed Orally Three times a day; Duration: 90 days 10/06/2025 Active Celecoxib 100 MG TAKE 1 CAPSULE BY MOUTH EVERY DAY WITH FOOD FOR 30 DAYS; Duration: 30 Not-Taking traZODone HCl 50 MG 1 tablet at bedtime as needed Orally Once a day; Duration: 30 days Active Magnesium Not-Taking amLODIPine Besylate 2.5 MG 1 tablet Orally Once a day; Duration: 90 days Active Calcium Not-Taking Thiamine HCl 100 MG 1 tablet Orally Once a day; Duration: 90 days Active Furosemide 40 MG TAKE 1 TABLET BY MOUTH EVERY DAY FOR 90 DAYS; Duration: 90 GI doctor recommended to stop the medication Not-Taking Ferrous Sulfate 325 (65 Fe) MG TAKE 1 TABLET BY MOUTH EVERY DAY FOR 30 DAYS; Duration: 90 Not-Taking Sertraline HCl 100 MG 2 tablets Orally Once a day; Duration: 30 days Active Pantoprazole Sodium 40 MG TAKE 1 TABLET BY MOUTH EVERY DAY; Duration: 90 Not-Taking Vitamin B6 50 MG TAKE 1 TABLET BY MOUTH EVERY DAY; Duration: 90 Not-Taking hydrOXYzine HCl 25 MG TAKE 1 TABLET BY MOUTH EVERY 8 HOURS; Duration: 90 Not-Taking tiZANidine HCl 4 MG TAKE 1 TABLET BY MOUTH EVERY DAY AT BEDTIME NEEDED FOR 30 DAYS; Duration: 30 Not-Taking Gabapentin 300 MG 1 capsule Orally four times a day; Duration: 90 days Not-Taking cloNIDine HCl 0.2 MG 1 tablet in the morning and two at night Orally twice a day; Duration: 90 days Not-Taking Cialis 10 MG 1 tablet as needed Orally Once a day; Duration: 2 days 01/26/2025 Not-Taking Pramipexole Dihydrochloride 0.5 MG TAKE 1 TABLET BY MOUTH EVERY DAY FOR 30 DAYS; Duration: 90 Not-Taking Morphine Sulfate ER 10 MG 1 capsule Orally Once a day; Duration: 10 days Partial Fill upon Patient Request 01/04/2025 Not-Taking Dicyclomine HCl 20 MG TAKE 1 TABLET BY MOUTH THREE TIMES A DAY FOR 30 DAYS; Duration: 90 Not-Taking Folic Acid 1 MG 1 tablet Orally Once a day; Duration: 90 days Not-Taking Diclofenac Sodium 1 % DIRECTED EXTERNALLY 2 TIMES A DAY FOR 30 DAYS; Duration: 30 Not-Taking Naltrexone HCl 50 MG 1 tablet Orally Once a day; Duration: 30 day(s) 10/18/2022 Not-Taking Furosemide 40 MG 1 tablet Orally Once a day; Duration: 3 days 05/07/2024 Active Rosuvastatin Calcium 5 MG TAKE 1 TABLET BY MOUTH EVERY DAY FOR 30 DAYS; Duration: 90 Active Immunizations Vaccine Route Administration Date Status Comme nts COVID Unknown 08/04/2021 Administered COVID 19 Pfizer Unknown 08/25/2021 Administered Hep B, adult dosage, for intramuscular use Unknown 03/14/2017 Administered Hep B, adult dosage, for intramuscular use Unknown 11/08/2017 Administered Tdap Unknown 12/16/2019 Administered Social History Tobacco Use: Social History Observation [...] Problem Status W/U Status Risk Notes Problem Mixed hyperlipidemia (067421843) Mixed hyperlipidemia (E78.2) Active confirmed Problem Alcohol dependence (07144471) Alcohol dependence, uncomplicated (F10.20) Active confirmed Problem Tobacco user (629051785) Nicotine dependence, cigarettes, uncomplicated (F17.210) Active confirmed Problem Generalized anxiety disorder (62925659) Generalized anxiety disorder (F41.1) Active confirmed Problem Tremor (90325006) Other specifie d forms of tremor (G25.2) Active confirmed Problem Restless legs syndrome (76111122) Restless legs syndrome (G25.81) Active confirmed Problem Sleep disorder (50201825) Sleep disorder, unspecified (G47.9) Active confirmed Problem Polyneuropathy (72356101) Polyneuropathy, unspecified (G62.9) Active confirmed Problem Essential hypertension (84456494) Essential (primary) hypertension (I10) Active confirmed Problem Gastro-esophageal reflux disease without esophagitis (277964474) Gastro-esophageal reflux disease without esophagitis (K21.9) Active confirmed Problem Alcoholic cirrhosis (532486844) Alcoholic cirrhosis of liver without ascites (K70.30) Active confirmed Problem Chronic kidney disease (685079060) Chronic kidney disease, unspecified (N18.9) Active confirmed Problem Erectile dysfunction (disorder) (417549153) Male erectile dysfunction, unspecified (N52.9) Active confirmed Problem Visual hallucinations (13624962) Visual hallucinations (R44.1) Active confirmed Problem 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, 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 Problem Arthritis of left knee (1431024240032235 ) Arthritis of knee, left (M17.12) Active confirmed Problem Mixed hyperlipidemia (893182402) Hyperlipidemia, mixed (E78.2) Active confirmed Problem Bilateral carotid artery occlusion (634251844) Bilateral carotid artery occlusion (I65.23) Active confirmed Vital Signs Heart Rate 72 /min 10/06/2025 Temperature 97.1 degrees Fahrenheit 10/06/2025 Blood pressure diastolic 80 mm Hg 10/06/2025 Oximetry 97 % 10/06/2025 Height 71 in 10/06/2025 Blood pressure systolic 124 mm Hg 10/06/2025 Weight 205.4 lbs 10/06/2025 BMI 28.64 kg/m2 10/06/2025 Encounters Encounter Location Date Provider Diagnosis [address] [address] 07/30/2025 Marlon Gutierrez [address] [address] 11/12/2024 LLOYD MOHR [address] [address] 12/29/2024 Marlon Gutierrez Acute pancreatitis without necrosis or infection, unspecified K85.90 ; Hospital discharge follow-up Z09 ; Essential (primary) hypertension I10 ; Polyneuropathy, unspecified G62.9 and Generalized anxiety disorder F41.[address] [place] [address] 01/26/2025 Ghadeer Javyloum Essential (primary) hypertension I10 ; Generalized anxiety disorder F41.1 ; Impaired fasting blood sugar R73.01 ; Male erectile dysfunction, unspecified N52.9 ; Alcoholic cirrhosis of liver without ascites K70.30 ; Alcohol dependence, uncomplicated F10.20 and Arthritis of knee, left M17.[address] [place] [address] 10/06/2025 Ghadeer Javyloum Essential (primary) hypertension I10 ; Annual visit for general adult medical examination without abnormal findings Z00.00 ; Hyperlipidemia, mixed E78.2 ; Bilateral carotid artery occlusion I65.23 ; Generalized anxiety disorder F41.1 ; Impaired fasting blood sugar R73.01 ; Alcoholic cirrhosis of liver without ascites K70.30 ; Alcohol dependence, uncomplicated F10.20 ; Pain in left foot M79.672 ; Muscle spasm of calf M62.831 ; Iron deficiency E61.1 ; Cardiac murmur, unspecified R01.1 ; Encounter for screening for malignant neoplasm of prostate Z12.5 and Snoring R06.[address] [place] [address] 01/04/2025 DESAIROSINA MALAVEL Polyneuropathy, unspecified G62.[address] [place] [address] 01/27/[address] [place] [address] 03/25/[address] [place] [address] 04/01/2025 Marlon Gutierrez Generalized anxiety disorder F41.[address] [place] [address] 07/19/[address] [place] [address] 07/30/[address] [place] [address] 09/03/[address] [facility] [address] [place] [address] 09/09/2025 [facility] [address] [place] [address] 10/06/2025 Marlon Gutierrez Generalized anxiety disorder F41.[address] [place] [address] 10/07/2025 [facility] [address] [place] [address] 10/20/2025 Marlon Gutierrez Abnormal results of thyroid function studies R94.6 Assessments Encounter Date Diagnosis (ICD Code) Assessment Notes Treatment Notes Treatment Clinical Notes Section Notes 12/29/2024 Acute pancreatitis without necrosis or infection, unspecified (ICD-10 - K85.90) Mr. Curry is a 59-year-old gentleman with erectile dysfunction, CPS/lumbar radiculopathy, hypertension, acid reflux, generalized anxiety disorder, plantar fasciitis of the left foot, cirrhosis follows up with GI in [place] with Dr. Harden is here for Hospital discharge follow-up From [facility]. Patient was admitted for acute Pancreatitis with alcohol withdrawal. Plan as follows: Pancreatitis: -Secondary to etoh, he has history of pancreatitis as well. He is currently on Thiamine and multivitamin. I have discussed with patient that if he relapses on drinking then we can start vivitrol injection as a treatment modalities for etoh cessation. - recent LFTS at the hospital were: AST 51 and ALT 35 HTN: - Blood pressure is within accepted range. He is still in pain. Continue on the same regimen. We will check again in 4 weeks. Polyneuropathy: - Discussed with patient that given he has history of etoh dependence, we have to be careful with narcotics. He is currently on gabapentin 300mg three times a day. Increased gabapentine to 1,200mg daily. We will also short term Morphine to be taken sparingly. Moving forward we can also refer him to pain management MARISELA: - I have increased Sertraline to 200mg. We will follow-up in 4 weeks. I have rendered the services for this patient under direct supervision of Dr. Mohr, who did not see the patient but was available upon request 12/29/2024 Hospital discharge follow-up (ICD-10 - Z09) Mr. Curry is a 59-year-old gentleman with erectile dysfunction, CPS/lumbar radiculopathy, hypertension, acid reflux, generalized anxiety disorder, plantar fasciitis of the left foot, cirrhosis follows up with GI in [place] with Dr. Harden is here for Hospital discharge follow-up From [facility]. Patient was admitted for acute Pancreatitis with alcohol withdrawal. Plan as follows: Pancreatitis: -Secondary to etoh, he has history of pancreatitis as well. He is currently on Thiamine and multivitamin. I have discussed with patient that if he relapses on drinking then we can start vivitrol injection as a treatment modalities for etoh cessation. - recent LFTS at the hospital were: AST 51 and ALT 35 HTN: - Blood pressure is within accepted range. He is still in pain. Continue on the same regimen. We will check again in 4 weeks. Polyneuropathy: - Discussed with patient that given he has history of etoh dependence, we have to be careful with narcotics. He is currently on gabapentin 300mg three times a day. Increased gabapentine to 1,200mg daily. We will also short term Morphine to be taken sparingly. Moving forward we can also refer him to pain management MARISELA: - I have increased Sertraline to 200mg. We will follow-up in 4 weeks. I have rendered the services for this patient under direct supervision of Dr. Mohr, who did not see the patient but was available upon request 01/04/2025 Polyneuropathy, unspecified (ICD-10 - G62.9) 10/06/2025 Essential (primary) hypertension (ICD-10 - I10) Mr. Curry is a 60-year-old gentleman with erectile dysfunction, CPS/lumbar radiculopathy, hypertension, acid reflux, generalized anxiety disorder, plantar fasciitis of the left foot, cirrhosis follows up with GI in [place] with Dr. Harden is here for annual physical examination. Plan as follows: HTN: - Blood pressure is within accepted range. Continue on amlodipine 2.5mg. Advised on reducing salt intake. EKG is done in the office today, HR is 100bpm. No ST elevation or depression, no BBB CKD stage 3a. -Stable at this point. He follows with Security Coordinator, has an upcoming appt. AVoid NSAIDs and nephrotoxins agents. MARISELA/insomnia: - resumed patient back on Sertraline to 200mg. Resumed him on Trazodone 50mg as well. NO SI. We will follow up in 4 weeks. HLD. Resumed patient on Rosuvastatin 5mg, to be taken at bedtime. Check lipid panel Impaired fasting glucose - Previous a1c of 6.2 Dietary changes have been discussed. Check a1c. Alcohol dependence: Alcoholic liver cirrhosis - He is relapsing on ETOH. He drinks socially 1-2 drinks of wine. Different modalities have been discussed again. Worsening of liver function and other complications have been Snoring. STOP bang score of 6 and Higgins score of 5. Referred patient to sleep medicine Edema. 2+ pitting edema is noted on exam. Refilled Lasix to be taken for 3 days. Advised on ETOH abstinence and reduce salt intake. Pain in the left foot. He has known history of plantar fasciitis. 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 We will obtain X-ray of the foot and referred patient to podiatry. Spasm of the left calf. He has history of RONEL. CHeck CBC. He was prescribed baclofen by [facility] it seemed to improve his sxs, continue on the same regimen. Advised on considering tonic water. Occlusion of the carotid. No records to be found, no bruit is noted on exam. He was informed by the [employer] that does home screening that he has stenosis. I will obtain a new U/S. Mitral valve disease. I will obtain new echo for update. Stable at this point. Vision. Recommended to touch base with opthalm Dentist. Touch base with Dentist. Vaccinations, declines C-scope was done [address] Sheppard, and he is on a 10-year cycle/ He is stable on his feet, he uses a walker to ambulate and currently in PT sessions following recent Left hip replacement surgery. I have rendered the services for this patient under direct supervision of Dr. Mohr, who did not see the patient but was available upon request Content of this note has been dictated using voice recognition software. Despite multiple revisions, Errors may persist 10/06/2025 Annual visit for general adult medical examination without abnormal findings (ICD-10 - Z00.00) Mr. Curry is a 60-year-old gentleman with erectile dysfunction, CPS/lumbar radiculopathy, hypertension, acid reflux, generalized anxiety disorder, plantar fasciitis of the left foot, cirrhosis follows up with GI in [place] with Dr. Harden is here for annual physical examination. Plan as follows: HTN: - Blood pressure is within accepted range. Continue on amlodipine 2.5mg. Advised on reducing salt intake. EKG is done in the office today, HR is 100bpm. No ST elevation or depression, no BBB CKD stage 3a. -Stable at this point. He follows with Security Coordinator, has an upcoming appt. AVoid NSAIDs and nephrotoxins agents. MARISELA/insomnia: - resumed patient back on Sertraline to 200mg. Resumed him on Trazodone 50mg as well. NO SI. We will follow up in 4 weeks. HLD. Resumed patient on Rosuvastatin 5mg, to be taken at bedtime. Check lipid panel Impaired fasting glucose - Previous a1c of 6.2 Dietary changes have been discussed. Check a1c. Alcohol dependence: Alcoholic liver cirrhosis - He is relapsing on ETOH. He drinks socially 1-2 drinks of wine. Different modalities have been discussed again. Worsening of liver function and other complications have been Snoring. STOP bang score of 6 and Higgins score of 5. Referred patient to sleep medicine Edema. 2+ pitting edema is noted on exam. Refilled Lasix to be taken for 3 days. Advised on ETOH abstinence and reduce salt intake. Pain in the left foot. He has known history of plantar fasciitis. 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 We will obtain X-ray of the foot and referred patient to podiatry. Spasm of the left calf. He has history of RONEL. CHeck CBC. He was prescribed baclofen by [facility] it seemed to improve his sxs, continue on the same regimen. Advised on considering tonic water. Occlusion of the carotid. No records to be found, no bruit is noted on exam. He was informed by the [employer] that does home screening that he has stenosis. I will obtain a new U/S. Mitral valve disease. I will obtain new echo for update. Stable at this point. Vision. Recommended to touch base with opthalm Dentist. Touch base with Dentist. Vaccinations, declines C-scope was done [address] Sheppard, and he is on a 10-year cycle/ He is stable on his feet, he uses a walker to ambulate and currently in PT sessions following recent Left hip replacement surgery. I have rendered the services for this patient under direct supervision of Dr. Mohr, who did not see the patient but was available upon request Content of this note has been dictated using voice recognition software. Despite multiple revisions, Errors may persist 10/06/2025 Generalized anxiety disorder (ICD-10 - F41.1) 10/20/2025 Abnormal results of thyroid function studies (ICD-10 - R94.6) 04/01/2025 Generalized anxiety disorder (ICD-10 - F41.1) 01/26/2025 Essential (primary) hypertension (ICD-10 - I10) Mr. Curry is a 59-year-old gentleman with erectile dysfunction, CPS/lumbar radiculopathy, hypertension, acid reflux, generalized anxiety disorder, plantar fasciitis of the left foot, cirrhosis follows up with GI in [place] with Dr. Harden is here for follow-up. [...] Generalized anxiety disorder (ICD-10 - F41.1) Mr. Curry is a 59-year-old gentleman with erectile dysfunction, [...] the patient but was available upon request 10/06/2025 Hyperlipidemia, mixed (ICD-10 - E78.2) Mr. Curry is a 60-year-old gentleman with erectile dysfunction, CPS/lumbar radiculopathy, hypertension, acid reflux, generalized anxiety disorder, plantar fasciitis of the left foot, cirrhosis follows up with GI in [place] with Dr. Harden is here for annual physical examination. Plan as follows: HTN: - Blood pressure is within accepted range. Continue on amlodipine 2.5mg. Advised on reducing salt intake. EKG is done in the office today, HR is 100bpm. No ST elevation or depression, no BBB CKD stage 3a. -Stable at this point. He follows with Security Coordinator, has an upcoming appt. AVoid NSAIDs and nephrotoxins agents. MARISELA/insomnia: - resumed patient back on Sertraline to 200mg. Resumed him on Trazodone 50mg as well. NO SI. We will follow up in 4 weeks. HLD. Resumed patient on Rosuvastatin 5mg, to be taken at bedtime. Check lipid panel Impaired fasting glucose - Previous a1c of 6.2 Dietary changes have been discussed. Check a1c. Alcohol dependence: Alcoholic liver cirrhosis - He is relapsing on ETOH. He drinks socially 1-2 drinks of wine. Different modalities have been discussed again. Worsening of liver function and other complications have been Snoring. STOP bang score of 6 and Higgins score of 5. Referred patient to sleep medicine Edema. 2+ pitting edema is noted on exam. Refilled Lasix to be taken for 3 days. Advised on ETOH abstinence and reduce salt intake. Pain in the left foot. He has known history of plantar fasciitis. 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 We will obtain X-ray of the foot and referred patient to podiatry. Spasm of the left calf. He has history of RONEL. CHeck CBC. He was prescribed baclofen by [facility] it seemed to improve his sxs, continue on the same regimen. Advised on considering tonic water. Occlusion of the carotid. No records to be found, no bruit is noted on exam. He was informed by the [employer] that does home screening that he has stenosis. I will obtain a new U/S. Mitral valve disease. I will obtain new echo for update. Stable at this point. Vision. Recommended to touch base with opthalm Dentist. Touch base with Dentist. Vaccinations, declines C-scope was done [address] Sheppard, and he is on a 10-year cycle/ He is stable on his feet, he uses a walker to ambulate and currently in PT sessions following recent Left hip replacement surgery. I have rendered the services for this patient under direct supervision of Dr. Mohr, who did not see the patient but was available upon request Content of this note has been dictated using voice recognition software. Despite multiple revisions, Errors may persist 12/29/2024 Essential (primary) hypertension (ICD-10 - I10) Mr. Curry is a 59-year-old gentleman with erectile dysfunction, CPS/lumbar radiculopathy, hypertension, acid reflux, generalized anxiety disorder, plantar fasciitis of the left foot, cirrhosis follows up with GI in [place] with Dr. Harden is here for Hospital discharge follow-up From [facility]. Patient was admitted for acute Pancreatitis with alcohol withdrawal. Plan as follows: Pancreatitis: -Secondary to etoh, he has history of pancreatitis as well. He is currently on Thiamine and multivitamin. I have discussed with patient that if he relapses on drinking then we can start vivitrol injection as a treatment modalities for etoh cessation. - recent LFTS at the hospital were: AST 51 and ALT 35 HTN: - Blood pressure is within accepted range. He is still in pain. Continue on the same regimen. We will check again in 4 weeks. Polyneuropathy: - Discussed with patient that given he has history of etoh dependence, we have to be careful with narcotics. He is currently on gabapentin 300mg three times a day. Increased gabapentine to 1,200mg daily. We will also short term Morphine to be taken sparingly. Moving forward we can also refer him to pain management MARISELA: - I have increased Sertraline to 200mg. We will follow-up in 4 weeks. I have rendered the services for this patient under direct supervision of Dr. Mohr, who did not see the patient but was available upon request 12/29/2024 Polyneuropathy, unspecified (ICD-10 - G62.9) Mr. Curry is a 59-year-old gentleman with erectile dysfunction, CPS/lumbar radiculopathy, hypertension, acid reflux, generalized anxiety disorder, plantar fasciitis of the left foot, cirrhosis follows up with GI in [place] with Dr. Harden is here for Hospital discharge follow-up From [facility]. Patient was admitted for acute Pancreatitis with alcohol withdrawal. Plan as follows: Pancreatitis: -Secondary to etoh, he has history of pancreatitis as well. He is currently on Thiamine and multivitamin. I have discussed with patient that if he relapses on drinking then we can start vivitrol injection as a treatment modalities for etoh cessation. - recent LFTS at the hospital were: AST 51 and ALT 35 HTN: - Blood pressure is within accepted range. He is still in pain. Continue on the same regimen. We will check again in 4 weeks. Polyneuropathy: - Discussed with patient that given he has history of etoh dependence, we have to be careful with narcotics. He is currently on gabapentin 300mg three times a day. Increased gabapentine to 1,200mg daily. We will also short term Morphine to be taken sparingly. Moving forward we can also refer him to pain management MARISELA: - I have increased Sertraline to 200mg. We will follow-up in 4 weeks. I have rendered the services for this patient under direct supervision of Dr. Mohr, who did not see the patient but was available upon request 10/06/2025 Bilateral carotid artery occlusion (ICD-10 - I65.23) Mr. Curry is a 60-year-old gentleman with erectile dysfunction, CPS/lumbar radiculopathy, hypertension, acid reflux, generalized anxiety disorder, plantar fasciitis of the left foot, cirrhosis follows up with GI in [place] with Dr. Harden is here for annual physical examination. Plan as follows: HTN: - Blood pressure is within accepted range. Continue on amlodipine 2.5mg. Advised on reducing salt intake. EKG is done in the office today, HR is 100bpm. No ST elevation or depression, no BBB CKD stage 3a. -Stable at this point. He follows with Security Coordinator, has an upcoming appt. AVoid NSAIDs and nephrotoxins agents. MARISELA/insomnia: - resumed patient back on Sertraline to 200mg. Resumed him on Trazodone 50mg as well. NO SI. We will follow up in 4 weeks. HLD. Resumed patient on Rosuvastatin 5mg, to be taken at bedtime. Check lipid panel Impaired fasting glucose - Previous a1c of 6.2 Dietary changes have been discussed. Check a1c. Alcohol dependence: Alcoholic liver cirrhosis - He is relapsing on ETOH. He drinks socially 1-2 drinks of wine. Different modalities have been discussed again. Worsening of liver function and other complications have been Snoring. STOP bang score of 6 and Higgins score of 5. Referred patient to sleep medicine Edema. 2+ pitting edema is noted on exam. Refilled Lasix to be taken for 3 days. Advised on ETOH abstinence and reduce salt intake. Pain in the left foot. He has known history of plantar fasciitis. 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 We will obtain X-ray of the foot and referred patient to podiatry. Spasm of the left calf. He has history of RONEL. CHeck CBC. He was prescribed baclofen by [facility] it seemed to improve his sxs, continue on the same regimen. Advised on considering tonic water. Occlusion of the carotid. No records to be found, no bruit is noted on exam. He was informed by the [employer] that does home screening that he has stenosis. I will obtain a new U/S. Mitral valve disease. I will obtain new echo for update. Stable at this point. Vision. Recommended to touch base with opthalm Dentist. Touch base with Dentist. Vaccinations, declines C-scope was done [address] Sheppard, and he is on a 10-year cycle/ He is stable on his feet, he uses a walker to ambulate and currently in PT sessions following recent Left hip replacement surgery. I have rendered the services for this patient under direct supervision of Dr. Mohr, who did not see the patient but was available upon request Content of this note has been dictated using voice recognition software. Despite multiple revisions, Errors may persist 01/26/2025 Impaired fasting blood sugar (ICD-10 - R73.01) Mr. Curry is a 59-year-old gentleman with erectile dysfunction, [...] erectile dysfunction, unspecified (ICD-10 - N52.9) Mr. Curry is a 59-year-old gentleman with erectile dysfunction, [...] the patient but was available upon request 10/06/2025 Generalized anxiety disorder (ICD-10 - F41.1) Mr. Curry is a 60-year-old gentleman with erectile dysfunction, CPS/lumbar radiculopathy, hypertension, acid reflux, generalized anxiety disorder, plantar fasciitis of the left foot, cirrhosis follows up with GI in [place] with Dr. Harden is here for annual physical examination. Plan as follows: HTN: - Blood pressure is within accepted range. Continue on amlodipine 2.5mg. Advised on reducing salt intake. EKG is done in the office today, HR is 100bpm. No ST elevation or depression, no BBB CKD stage 3a. -Stable at this point. He follows with Security Coordinator, has an upcoming appt. AVoid NSAIDs and nephrotoxins agents. MARISELA/insomnia: - resumed patient back on Sertraline to 200mg. Resumed him on Trazodone 50mg as well. NO SI. We will follow up in 4 weeks. HLD. Resumed patient on Rosuvastatin 5mg, to be taken at bedtime. Check lipid panel Impaired fasting glucose - Previous a1c of 6.2 Dietary changes have been discussed. Check a1c. Alcohol dependence: Alcoholic liver cirrhosis - He is relapsing on ETOH. He drinks socially 1-2 drinks of wine. Different modalities have been discussed again. Worsening of liver function and other complications have been Snoring. STOP bang score of 6 and Higgins score of 5. Referred patient to sleep medicine Edema. 2+ pitting edema is noted on exam. Refilled Lasix to be taken for 3 days. Advised on ETOH abstinence and reduce salt intake. Pain in the left foot. He has known history of plantar fasciitis. 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 We will obtain X-ray of the foot and referred patient to podiatry. Spasm of the left calf. He has history of RONEL. CHeck CBC. He was prescribed baclofen by [facility] it seemed to improve his sxs, continue on the same regimen. Advised on considering tonic water. Occlusion of the carotid. No records to be found, no bruit is noted on exam. He was informed by the [employer] that does home screening that he has stenosis. I will obtain a new U/S. Mitral valve disease. I will obtain new echo for update. Stable at this point. Vision. Recommended to touch base with opthalm Dentist. Touch base with Dentist. Vaccinations, declines C-scope was done [address] Sheppard, and he is on a 10-year cycle/ He is stable on his feet, he uses a walker to ambulate and currently in PT sessions following recent Left hip replacement surgery. I have rendered the services for this patient under direct supervision of Dr. Mohr, who did not see the patient but was available upon request Content of this note has been dictated using voice recognition software. Despite multiple revisions, Errors may persist 12/29/2024 Generalized anxiety disorder (ICD-10 - F41.1) Mr. Curry is a 59-year-old gentleman with erectile dysfunction, CPS/lumbar radiculopathy, hypertension, acid reflux, generalized anxiety disorder, plantar fasciitis of the left foot, cirrhosis follows up with GI in [place] with Dr. Harden is here for Hospital discharge follow-up From [facility]. Patient was admitted for acute Pancreatitis with alcohol withdrawal. Plan as follows: Pancreatitis: -Secondary to etoh, he has history of pancreatitis as well. He is currently on Thiamine and multivitamin. I have discussed with patient that if he relapses on drinking then we can start vivitrol injection as a treatment modalities for etoh cessation. - recent LFTS at the hospital were: AST 51 and ALT 35 HTN: - Blood pressure is within accepted range. He is still in pain. Continue on the same regimen. We will check again in 4 weeks. Polyneuropathy: - Discussed with patient that given he has history of etoh dependence, we have to be careful with narcotics. He is currently on gabapentin 300mg three times a day. Increased gabapentine to 1,200mg daily. We will also short term Morphine to be taken sparingly. Moving forward we can also refer him to pain management MARISELA: - I have increased Sertraline to 200mg. We will follow-up in 4 weeks. I have rendered the services for this patient under direct supervision of Dr. Mohr, who did not see the patient but was available upon request 10/06/2025 Impaired fasting blood sugar (ICD-10 - R73.01) Mr. Curry is a 60-year-old gentleman with erectile dysfunction, CPS/lumbar radiculopathy, hypertension, acid reflux, generalized anxiety disorder, plantar fasciitis of the left foot, cirrhosis follows up with GI in [place] with Dr. Harden is here for annual physical examination. Plan as follows: HTN: - Blood pressure is within accepted range. Continue on amlodipine 2.5mg. Advised on reducing salt intake. EKG is done in the office today, HR is 100bpm. No ST elevation or depression, no BBB CKD stage 3a. -Stable at this point. He follows with Security Coordinator, has an upcoming appt. AVoid NSAIDs and nephrotoxins agents. MARISELA/insomnia: - resumed patient back on Sertraline to 200mg. Resumed him on Trazodone 50mg as well. NO SI. We will follow up in 4 weeks. HLD. Resumed patient on Rosuvastatin 5mg, to be taken at bedtime. Check lipid panel Impaired fasting glucose - Previous a1c of 6.2 Dietary changes have been discussed. Check a1c. Alcohol dependence: Alcoholic liver cirrhosis - He is relapsing on ETOH. He drinks socially 1-2 drinks of wine. Different modalities have been discussed again. Worsening of liver function and other complications have been Snoring. STOP bang score of 6 and Higgins score of 5. Referred patient to sleep medicine Edema. 2+ pitting edema is noted on exam. Refilled Lasix to be taken for 3 days. Advised on ETOH abstinence and reduce salt intake. Pain in the left foot. He has known history of plantar fasciitis. 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 We will obtain X-ray of the foot and referred patient to podiatry. Spasm of the left calf. He has history of RONEL. CHeck CBC. He was prescribed baclofen by [facility] it seemed to improve his sxs, continue on the same regimen. Advised on considering tonic water. Occlusion of the carotid. No records to be found, no bruit is noted on exam. He was informed by the [employer] that does home screening that he has stenosis. I will obtain a new U/S. Mitral valve disease. I will obtain new echo for update. Stable at this point. Vision. Recommended to touch base with opthalm Dentist. Touch base with Dentist. Vaccinations, declines C-scope was done [address] Sheppard, and he is on a 10-year cycle/ He is stable on his feet, he uses a walker to ambulate and currently in PT sessions following recent Left hip replacement surgery. I have rendered the services for this patient under direct supervision of Dr. Mohr, who did not see the patient but was available upon request Content of this note has been dictated using voice recognition software. Despite multiple revisions, Errors may persist 01/26/2025 Alcoholic cirrhosis of liver without ascites (ICD-10 - K70.30) Mr. Curry is a 59-year-old gentleman with erectile dysfunction, [...] Alcohol dependence, uncomplicated (ICD-10 - F10.20) Mr. Curry is a 59-year-old gentleman with erectile dysfunction, CPS/lumbar radiculopathy, hypertension, acid reflux, generalized anxiety disorder, plantar fasciitis of the left foot, cirrhosis follows up with GI in [place] with Dr. Harden is here for follow-up. [...] the patient but was available upon request 10/06/2025 Alcoholic cirrhosis of liver without ascites (ICD-10 - K70.30) Mr. Curry is a 60-year-old gentleman with erectile dysfunction, CPS/lumbar radiculopathy, hypertension, acid reflux, generalized anxiety disorder, plantar fasciitis of the left foot, cirrhosis follows up with GI in [place] with Dr. Harden is here for annual physical examination. Plan as follows: HTN: - Blood pressure is within accepted range. Continue on amlodipine 2.5mg. Advised on reducing salt intake. EKG is done in the office today, HR is 100bpm. No ST elevation or depression, no BBB CKD stage 3a. -Stable at this point. He follows with Security Coordinator, has an upcoming appt. AVoid NSAIDs and nephrotoxins agents. MARISELA/insomnia: - resumed patient back on Sertraline to 200mg. Resumed him on Trazodone 50mg as well. NO SI. We will follow up in 4 weeks. HLD. Resumed patient on Rosuvastatin 5mg, to be taken at bedtime. Check lipid panel Impaired fasting glucose - Previous a1c of 6.2 Dietary changes have been discussed. Check a1c. Alcohol dependence: Alcoholic liver cirrhosis - He is relapsing on ETOH. He drinks socially 1-2 drinks of wine. Different modalities have been discussed again. Worsening of liver function and other complications have been Snoring. STOP bang score of 6 and Higgins score of 5. Referred patient to sleep medicine Edema. 2+ pitting edema is noted on exam. Refilled Lasix to be taken for 3 days. Advised on ETOH abstinence and reduce salt intake. Pain in the left foot. He has known history of plantar fasciitis. 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 We will obtain X-ray of the foot and referred patient to podiatry. Spasm of the left calf. He has history of RONEL. CHeck CBC. He was prescribed baclofen by [facility] it seemed to improve his sxs, continue on the same regimen. Advised on considering tonic water. Occlusion of the carotid. No records to be found, no bruit is noted on exam. He was informed by the [employer] that does home screening that he has stenosis. I will obtain a new U/S. Mitral valve disease. I will obtain new echo for update. Stable at this point. Vision. Recommended to touch base with opthalm Dentist. Touch base with Dentist. Vaccinations, declines C-scope was done [address] Sheppard, and he is on a 10-year cycle/ He is stable on his feet, he uses a walker to ambulate and currently in PT sessions following recent Left hip replacement surgery. I have rendered the services for this patient under direct supervision of Dr. Mohr, who did not see the patient but was available upon request Content of this note has been dictated using voice recognition software. Despite multiple revisions, Errors may persist 10/06/2025 Alcohol dependence, uncomplicated (ICD-10 - F10.20) Mr. Curry is a 60-year-old gentleman with erectile dysfunction, CPS/lumbar radiculopathy, hypertension, acid reflux, generalized anxiety disorder, plantar fasciitis of the left foot, cirrhosis follows up with GI in [place] with Dr. Hadren is here for annual physical examination. Plan as follows: HTN: - Blood pressure is within accepted range. Continue on amlodipine 2.5mg. Advised on reducing salt intake. EKG is done in the office today, HR is 100bpm. No ST elevation or depression, no BBB CKD stage 3a. -Stable at this point. He follows with Security Coordinator, has an upcoming appt. AVoid NSAIDs and nephrotoxins agents. MARISELA/insomnia: - resumed patient back on Sertraline to 200mg. Resumed him on Trazodone 50mg as well. NO SI. We will follow up in 4 weeks. HLD. Resumed patient on Rosuvastatin 5mg, to be taken at bedtime. Check lipid panel Impaired fasting glucose - Previous a1c of 6.2 Dietary changes have been discussed. Check a1c. Alcohol dependence: Alcoholic liver cirrhosis - He is relapsing on ETOH. He drinks socially 1-2 drinks of wine. Different modalities have been discussed again. Worsening of liver function and other complications have been Snoring. STOP bang score of 6 and Higgins score of 5. Referred patient to sleep medicine Edema. 2+ pitting edema is noted on exam. Refilled Lasix to be taken for 3 days. Advised on ETOH abstinence and reduce salt intake. Pain in the left foot. He has known history of plantar fasciitis. 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 We will obtain X-ray of the foot and referred patient to podiatry. Spasm of the left calf. He has history of RONEL. CHeck CBC. He was prescribed baclofen by [facility] it seemed to improve his sxs, continue on the same regimen. Advised on considering tonic water. Occlusion of the carotid. No records to be found, no bruit is noted on exam. He was informed by the [employer] that does home screening that he has stenosis. I will obtain a new U/S. Mitral valve disease. I will obtain new echo for update. Stable at this point. Vision. Recommended to touch base with opthalm Dentist. Touch base with Dentist. Vaccinations, declines C-scope was done [address]ppard, and he is on a 10-year cycle/ He is stable on his feet, he uses a walker to ambulate and currently in PT sessions following recent Left hip replacement surgery. I have rendered the services for this patient under direct supervision of Dr. Mohr, who did not see the patient but was available upon request Content of this note has been dictated using voice recognition software. Despite multiple revisions, Errors may persist 01/26/2025 Arthritis of knee, left (ICD-10 - M17.12) Mr. Curry is a 59-year-old gentleman with erectile dysfunction, [...] the patient but was available upon request 10/06/2025 Pain in left foot (ICD-10 - M79.672) Mr. Curry is a 60-year-old gentleman with erectile dysfunction, CPS/lumbar radiculopathy, hypertension, acid reflux, generalized anxiety disorder, plantar fasciitis of the left foot, cirrhosis follows up with GI in [place] with Dr. Harden is here for annual physical examination. Plan as follows: HTN: - Blood pressure is within accepted range. Continue on amlodipine 2.5mg. Advised on reducing salt intake. EKG is done in the office today, HR is 100bpm. No ST elevation or depression, no BBB CKD stage 3a. -Stable at this point. He follows with Security Coordinator, has an upcoming appt. AVoid NSAIDs and nephrotoxins agents. MARISELA/insomnia: - resumed patient back on Sertraline to 200mg. Resumed him on Trazodone 50mg as well. NO SI. We will follow up in 4 weeks. HLD. Resumed patient on Rosuvastatin 5mg, to be taken at bedtime. Check lipid panel Impaired fasting glucose - Previous a1c of 6.2 Dietary changes have been discussed. Check a1c. Alcohol dependence: Alcoholic liver cirrhosis - He is relapsing on ETOH. He drinks socially 1-2 drinks of wine. Different modalities have been discussed again. Worsening of liver function and other complications have been Snoring. STOP bang score of 6 and Higgins score of 5. Referred patient to sleep medicine Edema. 2+ pitting edema is noted on exam. Refilled Lasix to be taken for 3 days. Advised on ETOH abstinence and reduce salt intake. Pain in the left foot. He has known history of plantar fasciitis. 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 We will obtain X-ray of the foot and referred patient to podiatry. Spasm of the left calf. He has history of RONEL. CHeck CBC. He was prescribed baclofen by [facility] it seemed to improve his sxs, continue on the same regimen. Advised on considering tonic water. Occlusion of the carotid. No records to be found, no bruit is noted on exam. He was informed by the [employer] that does home screening that he has stenosis. I will obtain a new U/S. Mitral valve disease. I will obtain new echo for update. Stable at this point. Vision. Recommended to touch base with opthalm Dentist. Touch base with Dentist. Vaccinations, declines C-scope was done [address] Sheppard, and he is on a 10-year cycle/ He is stable on his feet, he uses a walker to ambulate and currently in PT sessions following recent Left hip replacement surgery. I have rendered the services for this patient under direct supervision of Dr. Mohr, who did not see the patient but was available upon request Content of this note has been dictated using voice recognition software. Despite multiple revisions, Errors may persist 10/06/2025 Muscle spasm of calf (ICD-10 - M62.831) Mr. Curry is a 60-year-old gentleman with erectile dysfunction, CPS/lumbar radiculopathy, hypertension, acid reflux, generalized anxiety disorder, plantar fasciitis of the left foot, cirrhosis follows up with GI in [place] with Dr. Harden is here for annual physical examination. Plan as follows: HTN: - Blood pressure is within accepted range. Continue on amlodipine 2.5mg. Advised on reducing salt intake. EKG is done in the office today, HR is 100bpm. No ST elevation or depression, no BBB CKD stage 3a. -Stable at this point. He follows with Security Coordinator, has an upcoming appt. AVoid NSAIDs and nephrotoxins agents. MARISELA/insomnia: - resumed patient back on Sertraline to 200mg. Resumed him on Trazodone 50mg as well. NO SI. We will follow up in 4 weeks. HLD. Resumed patient on Rosuvastatin 5mg, to be taken at bedtime. Check lipid panel Impaired fasting glucose - Previous a1c of 6.2 Dietary changes have been discussed. Check a1c. Alcohol dependence: Alcoholic liver cirrhosis - He is relapsing on ETOH. He drinks socially 1-2 drinks of wine. Different modalities have been discussed again. Worsening of liver function and other complications have been Snoring. STOP bang score of 6 and Higgins score of 5. Referred patient to sleep medicine Edema. 2+ pitting edema is noted on exam. Refilled Lasix to be taken for 3 days. Advised on ETOH abstinence and reduce salt intake. Pain in the left foot. He has known history of plantar fasciitis. 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 We will obtain X-ray of the foot and referred patient to podiatry. Spasm of the left calf. He has history of RONEL. CHeck CBC. He was prescribed baclofen by [facility] it seemed to improve his sxs, continue on the same regimen. Advised on considering tonic water. Occlusion of the carotid. No records to be found, no bruit is noted on exam. He was informed by the [employer] that does home screening that he has stenosis. I will obtain a new U/S. Mitral valve disease. I will obtain new echo for update. Stable at this point. Vision. Recommended to touch base with opthalm Dentist. Touch base with Dentist. Vaccinations, declines C-scope was done [address] Sheppard, and he is on a 10-year cycle/ He is stable on his feet, he uses a walker to ambulate and currently in PT sessions following recent Left hip replacement surgery. I have rendered the services for this patient under direct supervision of Dr. Mohr, who did not see the patient but was available upon request Content of this note has been dictated using voice recognition software. Despite multiple revisions, Errors may persist 10/06/2025 Iron deficiency (ICD-10 - E61.1) Mr. Curry is a 60-year-old gentleman with erectile dysfunction, CPS/lumbar radiculopathy, hypertension, acid reflux, generalized anxiety disorder, plantar fasciitis of the left foot, cirrhosis follows up with GI in [place] with Dr. Harden is here for annual physical examination. Plan as follows: HTN: - Blood pressure is within accepted range. Continue on amlodipine 2.5mg. Advised on reducing salt intake. EKG is done in the office today, HR is 100bpm. No ST elevation or depression, no BBB CKD stage 3a. -Stable at this point. He follows with Security Coordinator, has an upcoming appt. AVoid NSAIDs and nephrotoxins agents. MARISELA/insomnia: - resumed patient back on Sertraline to 200mg. Resumed him on Trazodone 50mg as well. NO SI. We will follow up in 4 weeks. HLD. Resumed patient on Rosuvastatin 5mg, to be taken at bedtime. Check lipid panel Impaired fasting glucose - Previous a1c of 6.2 Dietary changes have been discussed. Check a1c. Alcohol dependence: Alcoholic liver cirrhosis - He is relapsing on ETOH. He drinks socially 1-2 drinks of wine. Different modalities have been discussed again. Worsening of liver function and other complications have been Snoring. STOP bang score of 6 and Higgins score of 5. Referred patient to sleep medicine Edema. 2+ pitting edema is noted on exam. Refilled Lasix to be taken for 3 days. Advised on ETOH abstinence and reduce salt intake. Pain in the left foot. He has known history of plantar fasciitis. 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 We will obtain X-ray of the foot and referred patient to podiatry. Spasm of the left calf. He has history of RONEL. CHeck CBC. He was prescribed baclofen by [facility] it seemed to improve his sxs, continue on the same regimen. Advised on considering tonic water. Occlusion of the carotid. No records to be found, no bruit is noted on exam. He was informed by the [employer] that does home screening that he has stenosis. I will obtain a new U/S. Mitral valve disease. I will obtain new echo for update. Stable at this point. Vision. Recommended to touch base with opthalm Dentist. Touch base with Dentist. Vaccinations, declines C-scope was done [address] Sheppard, and he is on a 10-year cycle/ He is stable on his feet, he uses a walker to ambulate and currently in PT sessions following recent Left hip replacement surgery. I have rendered the services for this patient under direct supervision of Dr. Mohr, who did not see the patient but was available upon request Content of this note has been dictated using voice recognition software. Despite multiple revisions, Errors may persist 10/06/2025 Cardiac murmur, unspecified (ICD-10 - R01.1) Mr. Curry is a 60-year-old gentleman with erectile dysfunction, CPS/lumbar radiculopathy, hypertension, acid reflux, generalized anxiety disorder, plantar fasciitis of the left foot, cirrhosis follows up with GI in [place] with Dr. Harden is here for annual physical examination. Plan as follows: HTN: - Blood pressure is within accepted range. Continue on amlodipine 2.5mg. Advised on reducing salt intake. EKG is done in the office today, HR is 100bpm. No ST elevation or depression, no BBB CKD stage 3a. -Stable at this point. He follows with Security Coordinator, has an upcoming appt. AVoid NSAIDs and nephrotoxins agents. MARISELA/insomnia: - resumed patient back on Sertraline to 200mg. Resumed him on Trazodone 50mg as well. NO SI. We will follow up in 4 weeks. HLD. Resumed patient on Rosuvastatin 5mg, to be taken at bedtime. Check lipid panel Impaired fasting glucose - Previous a1c of 6.2 Dietary changes have been discussed. Check a1c. Alcohol dependence: Alcoholic liver cirrhosis - He is relapsing on ETOH. He drinks socially 1-2 drinks of wine. Different modalities have been discussed again. Worsening of liver function and other complications have been Snoring. STOP bang score of 6 and Higgins score of 5. Referred patient to sleep medicine Edema. 2+ pitting edema is noted on exam. Refilled Lasix to be taken for 3 days. Advised on ETOH abstinence and reduce salt intake. Pain in the left foot. He has known history of plantar fasciitis. 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 We will obtain X-ray of the foot and referred patient to podiatry. Spasm of the left calf. He has history of RONEL. CHeck CBC. He was prescribed baclofen by [facility]ACHANASaabdulaz[facility] it seemed to improve his sxs, continue on the same regimen. Advised on considering tonic water. Occlusion of the carotid. No records to be found, no bruit is noted on exam. He was informed by the [employer] that does home screening that he has stenosis. I will obtain a new U/S. Mitral valve disease. I will obtain new echo for update. Stable at this point. Vision. Recommended to touch base with opthalm Dentist. Touch base with Dentist. Vaccinations, declines C-scope was done [address] Sheppard, and he is on a 10-year cycle/ He is stable on his feet, he uses a walker to ambulate and currently in PT sessions following recent Left hip replacement surgery. I have rendered the services for this patient under direct supervision of Dr. Mohr, who did not see the patient but was available upon request Content of this note has been dictated using voice recognition software. Despite multiple revisions, Errors may persist 10/06/2025 Encounter for screening for malignant neoplasm of prostate (ICD-10 - Z12.5) Mr. Curry is a 60-year-old gentleman with erectile dysfunction, CPS/lumbar radiculopathy, hypertension, acid reflux, generalized anxiety disorder, plantar fasciitis of the left foot, cirrhosis follows up with GI in [place] with Dr. Harden is here for annual physical examination. Plan as follows: HTN: - Blood pressure is within accepted range. Continue on amlodipine 2.5mg. Advised on reducing salt intake. EKG is done in the office today, HR is 100bpm. No ST elevation or depression, no BBB CKD stage 3a. -Stable at this point. He follows with Security Coordinator, has an upcoming appt. AVoid NSAIDs and nephrotoxins agents. MARISELA/insomnia: - resumed patient back on Sertraline to 200mg. Resumed him on Trazodone 50mg as well. NO SI. We will follow up in 4 weeks. HLD. Resumed patient on Rosuvastatin 5mg, to be taken at bedtime. Check lipid panel Impaired fasting glucose - Previous a1c of 6.2 Dietary changes have been discussed. Check a1c. Alcohol dependence: Alcoholic liver cirrhosis - He is relapsing on ETOH. He drinks socially 1-2 drinks of wine. Different modalities have been discussed again. Worsening of liver function and other complications have been Snoring. STOP bang score of 6 and Higgins score of 5. Referred patient to sleep medicine Edema. 2+ pitting edema is noted on exam. Refilled Lasix to be taken for 3 days. Advised on ETOH abstinence and reduce salt intake. Pain in the left foot. He has known history of plantar fasciitis. 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 We will obtain X-ray of the foot and referred patient to podiatry. Spasm of the left calf. He has history of RONEL. CHeck CBC. He was prescribed baclofen by [facility] it seemed to improve his sxs, continue on the same regimen. Advised on considering tonic water. Occlusion of the carotid. No records to be found, no bruit is noted on exam. He was informed by the [employer] that does home screening that he has stenosis. I will obtain a new U/S. Mitral valve disease. I will obtain new echo for update. Stable at this point. Vision. Recommended to touch base with opthalm Dentist. Touch base with Dentist. Vaccinations, declines C-scope was done [address] Sheppard, and he is on a 10-year cycle/ He is stable on his feet, he uses a walker to ambulate and currently in PT sessions following recent Left hip replacement surgery. I have rendered the services for this patient under direct supervision of Dr. Mohr, who did not see the patient but was available upon request Content of this note has been dictated using voice recognition software. Despite multiple revisions, Errors may persist 10/06/2025 Snoring (ICD-10 - R06.83) Mr. Curry is a 60-year-old gentleman with erectile dysfunction, CPS/lumbar radiculopathy, hypertension, acid reflux, generalized anxiety disorder, plantar fasciitis of the left foot, cirrhosis follows up with GI in [place] with Dr. Harden is here for annual physical examination. Plan as follows: HTN: - Blood pressure is within accepted range. Continue on amlodipine 2.5mg. Advised on reducing salt intake. EKG is done in the office today, HR is 100bpm. No ST elevation or depression, no BBB CKD stage 3a. -Stable at this point. He follows with Security Coordinator, has an upcoming appt. AVoid NSAIDs and nephrotoxins agents. MARISELA/insomnia: - resumed patient back on Sertraline to 200mg. Resumed him on Trazodone 50mg as well. NO SI. We will follow up in 4 weeks. HLD. Resumed patient on Rosuvastatin 5mg, to be taken at bedtime. Check lipid panel Impaired fasting glucose - Previous a1c of 6.2 Dietary changes have been discussed. Check a1c. Alcohol dependence: Alcoholic liver cirrhosis - He is relapsing on ETOH. He drinks socially 1-2 drinks of wine. Different modalities have been discussed again. Worsening of liver function and other complications have been Snoring. STOP bang score of 6 and Higgins score of 5. Referred patient to sleep medicine Edema. 2+ pitting edema is noted on exam. Refilled Lasix to be taken for 3 days. Advised on ETOH abstinence and reduce salt intake. Pain in the left foot. He has known history of plantar fasciitis. 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 We will obtain X-ray of the foot and referred patient to podiatry. Spasm of the left calf. He has history of RONEL. CHeck CBC. He was prescribed baclofen by RACHANASaabdulaziz it seemed to improve his sxs, continue on the same regimen. Advised on considering tonic water. Occlusion of the carotid. No records to be found, no bruit is noted on exam. He was informed by the [employer] that does home screening that he has stenosis. I will obtain a new U/S. Mitral valve disease. I will obtain new echo for update. Stable at this point. Vision. Recommended to touch base with opthalm Dentist. Touch base with Dentist. Vaccinations, declines C-scope was done [address] Sheppard, and he is on a 10-year cycle/ He is stable on his feet, he uses a walker to ambulate and currently in PT sessions following recent Left hip replacement surgery. I have rendered the services for this patient under direct supervision of Dr. Mohr, who did not see the patient but was available upon request Content of this note has been dictated using voice recognition software. Despite multiple revisions, Errors may persist Plan Of Treatment Pending Test Test Name Order Date Ultrasound : Carotids 10/06/2025 Echocardiogram 10/06/2025 Echocardiogram 03/10/2024 Iron and TIBC 10/06/2025 POTASSIUM 09/05/2022 Xray: Foot Left-Min 3 Vws 10/06/2025 [id number] 10/06/2025 Hgb A1c with eAG Estimation-[id number] 06/05 Albumin/Creatinine Ratio,[id number] Lipid Panel-[id number] 06/03/2024 TSH+Free T4 10/20/2025 Next Appt Details Provider Name:Aggievalerie rush, 11/11/2025 01:30:00 PM, [address] [place] [address], [place], [address], Insurance Providers Payer Name Payer Address Payer Phone Subscriber Number Group Number Insured Name Patient Relationship to Insured Coverage Start Date Coverage End Date [facility]) [address] [address] [place] [address] [id number] Pantera Curry Self - patient is the insured Medical (General) History Medical History History ICD Code lumber radiculopathy Osteonecrosis of left hip joint And he s aw orthopedics at [facility] Hypertension Chronic pain syndrome Acid reflux Alcohol dependence MARISELA, sees a therapist at [facility], psych at [facility] neuropathy, sees Sangita Barone NP Personal history of COVID-19 left-sided kidney stones Surgical History Surgery Date(Month/Year) [address] Marlow 2007, at [facility] and fusion at [facility] in 2008 left knee surgery left hip replacement-[facility] 09/2025 Hospitalization History Reason Date(Month/Year) alcohol withdrawal delirium, community a cquired pneumonia, [facility] 03/2022
--- OUTSIDE RECORDS SUMMARY | 2025-10-20 21:16 | XMS_ITS | Clinical Summary ---
Author Organization [employer] [facility] it Address [address] [place] [address] Care Team Providers Care Hvac Maintenance Technician Name Role Phone Sheba Ayala MD Primary Care Provider [phone] Medical History Medical History Date Comments Basal [...] Health Maintenance Due Date Last Done Comments Colorectal Cancer Screening: Colonoscopy 1964 DTaP,Tdap,and Td Vaccines (1 - Tdap) 1983 Pneumococcal Vaccine: 50+ Ye ars (1 of 1 - PCV) 2014 Zoster Vaccines (1 of 2) 2014 Cholesterol Screening (Lipid Panel) 11/10/2022 HIV Screening 11/10/2022 Hepatitis C Screening 11/10/2022 Social Influencers of Health Screening 11/10/2022 Depression Screening 12/02/2024 COVID-19 Vaccine (1 - 2024-2 6 season) 2025 Influenza Vaccine (#1) 2025 RSV Immunization Adult Patie nts (1 - 1-dose 75+ series) 2039 HIB [...] age to complete this topic Meningococcal B Vaccine Aged Out No l onger eligible based on patient's age to complete this topic RSV Immunization Patients Un elissa 20 months Aged Out No longer eligible b ased on patient's age to complete this topic Varicella Vaccines Aged Out No longer eligible based on patient's age to complete this topic Advance Directives Documents on File Type Date Recorded Patient News Broadcaster Expl anation Health Care Decision (hx) 10/06/2018 [...] (hx) 10/03/2018 AD SHEFFIELD DIRECTIVE Care Teams Hvac Maintenance Technician Relationship Specialty Start Date End Date Sheba Ayala MD [address] [place] [address] PCP - General Internal Medicine 01/04/21
== END 2025-10-20 11:08 | disposition home or self-care (01) ==
LOC: HO.HKAS 10:47
PROVIDERS: PCP Hospitalist; Visit Provider Internal Medicine Hypertension Specialist
DX: N18.9 Chronic kidney disease, unspecified (principal)
CPT/HCPCS: 99214

== ENCOUNTER → 2025-10-20 10:47 | Outpatient (BNVA) | payer OTHER, SELFPAY | PROVIDERS: PCP Hospitalist; Visit Provider Internal Medicine Hypertension Specialist | DX: N18.9 Chronic kidney disease, unspecified (principal) | CPT/HCPCS: 99212 ==